=== PATIENT | male | born 1935 | race Caucasian/White ===

== ENCOUNTER 2018-12-20 14:34 | Emergency (ER) | payer MEDICARE ==
--- NOTE | 2018-12-20 14:40 | ERPHSYRPT ---
- History of Present Illness Time Seen by Provider: 12/20/18 14:40 Source: patient, family Exam Limitations: no limitations Physician History: 83 y/o white male on plavix and asa missed a step at home porch and scraped left vale. pt has been washing daily since he injured it 1 week ago. pt denies fever. here today because not improving much. maybe a little more red. no sig pain. Timing/Duration: week(s) (1) Severity: mild Location: extremities (left lower leg) Possible Causes: other (abrasions and healing sking tears) Associated Symptoms: change in skin texture Allergies/Adverse Reactions: No Known Drug Allergies Allergy (Verified 12/20/18 14:48) - Review of Systems Constitutional: No Symptoms Eyes: No Symptoms Ears, Nose, & Throat: No Symptoms Respiratory: No Symptoms Cardiac: No Symptoms Abdominal/Gastrointestinal: No Symptoms Genitourinary Symptoms: No Symptoms Musculoskeletal: No Symptoms Skin: Cellulitis, Other (abrasion and skin tears left vale) Neurological: No Symptoms Psychological: No Symptoms Endocrine: No Symptoms Hematologic/Lymphatic: No Symptoms Immunological/Allergic: No Symptoms All Other Systems: Reviewed and Negative - Past Medical History Neurological History: No Pertinent History ENT History: No Pertinent History Cardiac History: No Pertinent History Respiratory History: No Pertinent History Endocrine Medical History: No Pertinent History Musculoskeletal History: No Pertinent History GI Medical History: No Pertinent History History: No Pertinent History Psycho-Social History: No Pertinent History Male Reproductive Disorders: No Pertinent History - Past Surgical History Neuro Surgical History: No Pertinent History Cardiac: No Pertinent History Respiratory: No Pertinent History Gastrointestinal: No Pertinent History Genitourinary: No Pertinent History Musculoskeletal: No Pertinent History Male Surgical History: No Pertinent History - Nursing Vital Signs Nursing Vital Signs: Initial Vital Signs Temperature 97.7 F 12/20/18 14:40 Pulse Rate 69 12/20/18 14:40 Blood Pressure 155/78 12/20/18 14:40 O2 Sat by Pulse Oximetry 95 12/20/18 14:40 Pain Scale Pain Intensity 0 - Physical Exam General Appearance: no apparent distress, alert, anxiety Eye Exam: PERRL/EOMI, eyes nml inspection Ears, Nose, Throat Exam: normal ENT inspection, moist mucous membranes Neck Exam: normal inspection, non-tender, supple, full range of motion Respiratory Exam: normal breath sounds, lungs clear, airway intact, No chest tenderness, No respiratory distress Cardiovascular Exam: regular rate/rhythm, normal heart sounds, normal peripheral pulses Gastrointestinal/Abdomen Exam: No tenderness Rectal Exam: not done Back Exam: normal inspection, normal range of motion, No CVA tenderness, No vertebral tenderness Extremity Exam: other (abrasions and skin tears to left lower tibial margin. mild redness surrounding. no pus and no drainage. no odor and no sig pain) Neurologic Exam: alert, oriented x 3, cooperative, spd tech II-XII nml as tested, normal mood/affect, nml cerebellar function, nml station & gait Skin Exam: other (see above) Lymphatic Exam: No adenopathy SpO2 Interpretation: normal O2 Delivery: Room Air - Course Nursing assessment & vital signs reviewed: Yes Ordered Tests: Medication Summary Discontinued Medications Generic Name Dose Route Start Last Admin Trade Name Freq PRN Reason Stop Dose Admin Ceftriaxone Sodium 1,000 mg 12/20/18 14:59 Rocephin 1000 Mg Inj IM 12/20/18 15:00 STAT ONE - Progress Progress: unchanged Counseled pt/family regarding: diagnosis, need for follow-up - Departure Departure Disposition: Home Clinical Impression: Left leg cellulitis Condition: Stable Critical Care Time: No Referrals: PAULO ALVAREZ [Primary Care Provider] - Additional Instructions: wash site 2 times daily with soap and water. blot dry or use hairdryer to dry. apply antibiotic ointment of choice to areas after each washing. elevate left leg above heart if not ambulating. follow up with primary doctor for further management and reevaluation in 48 hours. return to ED if symptoms worsen. Prescriptions: Smz/Tmp Ds Tablet [Bactrim Ds Tablet] 1 udtab PO BID #14 tablet
[2018-12-20 14:49] VITALS: BP 155/78; PULSE 69; O2SAT 95
[2018-12-20] MEDS ORDERED: Rocephin 1000 MG INJ IM ONE (14:59)
[2018-12-20] MEDS ORDERED: Rocephin 1000 MG INJ ONE (15:07)
== END 2018-12-20 15:36 | disposition home or self-care (01) ==
LOC: ED 14:34
DX: L03.116 Cellulitis of left lower limb (principal)
CPT/HCPCS: 96372; 99283; J0696

== ENCOUNTER 2019-11-02 22:12 | Inpatient (IN) | payer MEDICARE ==
--- NOTE | 2019-11-02 22:34 | ERPHSYRPT ---
- History of Present Illness Time Seen by Provider: 11/02/19 22:33 Source: patient, family Exam Limitations: no limitations Physician History: This is an 83-year-old white male who has a history of COPD and has chronic shortness of breath. He wears 2 L of oxygen via nasal cannula at night. In the last 24 hours he is had a cough, low-grade fever and more short of breath than usual. His spouse has similar symptoms patient denies abdominal pain he denies chest pain. He has had no nausea vomiting or diarrhea. He is unaware of being exposed to anybody with COVID-19 positive test. Timing/Duration: yesterday Fever Severity: mild Associated Symptoms: cough, shortness of breath Allergies/Adverse Reactions: No Known Drug Allergies Allergy (Verified 12/20/18 14:48) Travel Risk - International Travel Have you traveled outside of the country in past 3 weeks: No - Coronavirus Screening Are you exhibiting any of the following symptoms?: Yes Symptoms: Fever, Cough: New Onset, Shortness of Breath Close contact with a COVID-19 positive Pt in past 14-21 Days: No - Review of Systems Constitutional: Fever Eyes: No Symptoms Ears, Nose, & Throat: No Symptoms Respiratory: Cough, Dyspnea Cardiac: No Symptoms Abdominal/Gastrointestinal: No Symptoms, No Abdominal Pain, No Nausea, No Vomiting, No Diarrhea Genitourinary Symptoms: No Symptoms Musculoskeletal: No Symptoms Skin: No Symptoms Neurological: No Symptoms Psychological: No Symptoms Endocrine: No Symptoms Hematologic/Lymphatic: No Symptoms Immunological/Allergic: No Symptoms All Other Systems: Reviewed and Negative - Past Medical History Pertinent Past Medical History: Yes Neurological History: No Pertinent History ENT History: No Pertinent History Cardiac History: No Pertinent History Respiratory History: No Pertinent History Endocrine Medical History: No Pertinent History Musculoskeletal History: No Pertinent History GI Medical History: No Pertinent History History: No Pertinent History Psycho-Social History: No Pertinent History Male Reproductive Disorders: No Pertinent History - Past Surgical History Neuro Surgical History: No Pertinent History Cardiac: No Pertinent History Respiratory: No Pertinent History Gastrointestinal: No Pertinent History Genitourinary: No Pertinent History Musculoskeletal: No Pertinent History Male Surgical History: No Pertinent History - Social History Smoking Status: Former smoker Exposure to second hand smoke: No Drug Use: none Patient Lives Alone: No - Nursing Vital Signs Nursing Vital Signs: Initial Vital Signs Temperature 98.7 F 11/02/19 22:13 Pulse Rate 102 H 11/02/19 22:13 Respiratory Rate 22 11/02/19 22:13 Blood Pressure 129/77 11/02/19 22:13 O2 Sat by Pulse Oximetry 92 L 11/02/19 22:13 Pain Scale Pain Intensity 0 - Course Nursing assessment & vital signs reviewed: Yes EKG Interpreted by Me: RATE, Sinus Rhythm, NORMAL AXIS, NORMAL INTERVALS, NORMAL QRS (Would just say the plan is looks like Far-Less), Other (No acute ischemic changes on this EKG. No comparison EKG available) Ordered Tests: Active Orders 24 hr Category Date Time Status EKG-ER Only STAT Care 11/02/19 22:56 Active IV Insertion STAT Care 11/02/19 22:56 Active Pulse Oximetry (ED) STAT Care 11/02/19 22:56 Active CHEST 1 VIEW (PORTABLE) Stat Exams 11/03/19 00:01 Ordered BLOOD CULTURE Stat Lab 11/02/19 22:47 Ordered CBC W DIFF Stat Lab 11/02/19 22:47 Completed CMP Stat Lab 11/02/19 22:47 Completed Ferritin Stat Lab 11/02/19 22:47 Completed LDH-LACTATE DEHYDROGENASE Stat Lab 11/02/19 22:47 Completed Lactic Acid Stat Lab 11/02/19 22:56 Completed [place] Screen Stat Lab 11/02/19 22:47 Completed UA W/RFX UR CULTURE Stat Lab 11/02/19 23:01 Completed Transfer Order Routine Transfer 11/03/19 Ordered Medication Summary Generic Name Dose Route Start Last Admin Trade Name Freq PRN Reason Stop Dose Admin Ceftriaxone Sodium/Dextrose 1 g in 50 mls @ 100 mls/hr 11/03/19 02:08 Rocephin 1 Gm-D5w 50 Ml Bag IV 11/03/19 02:37 STAT STA Discontinued Medications Generic Name Dose Route Start Last Admin Trade Name Freq PRN Reason Stop Dose Admin Sodium Chloride 1,000 mls @ 999 mls/hr 11/02/19 22:56 11/03/19 00:18 Sodium Chloride 0.9% 1000 Ml IV 11/02/19 23:56 Infused .Q1H1M STA Infusion Sodium Chloride Confirm 11/02/19 23:08 Sodium Chloride 0.9% 1000 Ml Administered 11/02/19 23:09 Dose 1,000 mls @ ud .ROUTE .[facility] Lab/Rad Data: Laboratory Result Diagrams 11/02/19 22:47 11/02/19 22:47 Laboratory Results 11/02/19 11/02/19 11/02/19 Range/Units 23:01 22:56 22:47 WBC (4.0-10.5) K/mm3 RBC (4.1-5.6) M/mm3 Hgb (12.5-18.0) gm/dl Hct (42-50) % MCV (78-100) fl MCH (26-32) pg MCHC (32-36) g/dl RDW (11.5-14.0) % Plt Count (150-450) K/mm3 MPV (7.5-11.0) fl Gran % (36.0-66.0) % Eos # (Auto) (0-0.5) Absolute Lymphs (auto) (1.0-4.6) Absolute Monos (auto) (0.0-1.3) Lymphocytes % (24.0-44.0) % Monocytes % (0.0-12.0) % Eosinophils % (0.00-5.0) % Basophils % (0.0-0.4) % Absolute Granulocytes (1.4-6.9) Basophils # (0-0.4) Sodium (137-145) mmol/L Potassium (3.5-5.1) mmol/L Chloride (98-107) mmol/L Carbon Dioxide (22-30) mmol/L Anion Gap (5-15) MEQ/L BUN (9-20) mg/dL Creatinine (0.66-1.25) mg/dL Estimated GFR ML/MIN Glucose (74-106) mg/dL Lactic Acid 1.0 (0.4-2.0) Calcium (8.4-10.2) mg/dL Ferritin 121 (17.9-464) ng/mL Total Bilirubin (0.2-1.3) mg/dL AST (17-59) U/L ALT (0-50) U/L Alkaline Phosphatase (38-126) U/L Lactate Dehydrogenase (120-246) U/L Serum Total Protein (6.3-8.2) g/dL Albumin (3.5-5.0) g/dL Urine Color YELLOW (YELLOW) Urine Appearance CLEAR (CLEAR) Urine pH 5.0 (5-6) Ur Specific [place] 1.020 (1.005-1.025) Urine Protein NEGATIVE (Negative) Urine Ketones NEGATIVE (NEGATIVE) Urine Blood NEGATIVE (0-5) Goyo/ul Urine Nitrite NEGATIVE (NEGATIVE) Urine Bilirubin NEGATIVE (NEGATIVE) Urine Urobilinogen 4 (0-1) mg/dL Ur Leukocyte Esterase TRACE (NEGATIVE) Urine WBC (Auto) 3-5 (0-5) /HPF Urine RBC (Auto) 0-2 (0-2) /HPF U Hyaline Cast (Auto) 11-25 (0-2) /LPF U Epithel Cells (Auto) NONE (FEW) /HPF Urine Bacteria (Auto) NONE (NEGATIVE) /HPF Urine Mucus (Auto) SLIGHT (NEGATIVE) /HPF Urine Culture Reflexed NO (NO) Urine Glucose NEGATIVE (NEGATIVE) mg/dL Monoscreen (Negative) Influenza Type A Ag (NEGATIVE) Influenza Type B Ag (NEGATIVE) RSV (PCR) (Negative) SARS-CoV-2 (PCR) (NEGATIVE) Group A Strep Antibody (NEGATIVE) 11/02/19 11/02/19 11/02/19 Range/Units 22:47 22:47 22:47 WBC (4.0-10.5) K/mm3 RBC (4.1-5.6) M/mm3 Hgb (12.5-18.0) gm/dl Hct (42-50) % MCV (78-100) fl MCH (26-32) pg MCHC (32-36) g/dl RDW (11.5-14.0) % Plt Count (150-450) K/mm3 MPV (7.5-11.0) fl Gran % (36.0-66.0) % Eos # (Auto) (0-0.5) Absolute Lymphs (auto) (1.0-4.6) Absolute Monos (auto) (0.0-1.3) Lymphocytes % (24.0-44.0) % Monocytes % (0.0-12.0) % Eosinophils % (0.00-5.0) % Basophils % (0.0-0.4) % Absolute Granulocytes (1.4-6.9) Basophils # (0-0.4) Sodium 137 (137-145) mmol/L Potassium 3.5 (3.5-5.1) mmol/L Chloride 101 (98-107) mmol/L Carbon Dioxide 26 (22-30) mmol/L Anion Gap 12.8 (5-15) MEQ/L BUN 16 (9-20) mg/dL Creatinine 1.08 (0.66-1.25) mg/dL Estimated GFR > 60.0 ML/MIN Glucose 97 (74-106) mg/dL Lactic Acid (0.4-2.0) Calcium 8.8 (8.4-10.2) mg/dL Ferritin (17.9-464) ng/mL Total Bilirubin 0.70 (0.2-1.3) mg/dL AST 40 (17-59) U/L ALT 38 (0-50) U/L Alkaline Phosphatase 113 (38-126) U/L Lactate Dehydrogenase 205 (120-246) U/L Serum Total Protein 6.6 (6.3-8.2) g/dL Albumin 4.1 (3.5-5.0) g/dL Urine Color (YELLOW) Urine Appearance (CLEAR) Urine pH (5-6) Ur Specific [place] (1.005-1.025) Urine Protein (Negative) Urine Ketones (NEGATIVE) Urine Blood (0-5) Goyo/ul Urine Nitrite (NEGATIVE) Urine Bilirubin (NEGATIVE) Urine Urobilinogen (0-1) mg/dL Ur Leukocyte Esterase (NEGATIVE) Urine WBC (Auto) (0-5) /HPF Urine RBC (Auto) (0-2) /HPF U Hyaline Cast (Auto) (0-2) /LPF U Epithel Cells (Auto) (FEW) /HPF Urine Bacteria (Auto) (NEGATIVE) /HPF Urine Mucus (Auto) (NEGATIVE) /HPF Urine Culture Reflexed (NO) Urine Glucose (NEGATIVE) mg/dL Monoscreen NEGATIVE (Negative) Influenza Type A Ag (NEGATIVE) Influenza Type B Ag (NEGATIVE) RSV (PCR) (Negative) SARS-CoV-2 (PCR) (NEGATIVE) Group A Strep Antibody (NEGATIVE) 11/02/19 11/02/19 Range/Units 22:47 00:00 WBC 2.7 L (4.0-10.5) K/mm3 RBC 4.43 (4.1-5.6) M/mm3 Hgb 13.7 (12.5-18.0) gm/dl Hct 42.8 (42-50) % MCV 96.6 (78-100) fl MCH 30.9 (26-32) pg MCHC 32.0 (32-36) g/dl RDW 13.2 (11.5-14.0) % Plt Count 85 L (150-450) K/mm3 MPV 13.0 H (7.5-11.0) fl Gran % 58.8 (36.0-66.0) % Eos # (Auto) 0.02 (0-0.5) Absolute Lymphs (auto) 0.64 L (1.0-4.6) Absolute Monos (auto) 0.43 (0.0-1.3) Lymphocytes % 24.0 (24.0-44.0) % Monocytes % 16.1 H (0.0-12.0) % Eosinophils % 0.7 (0.00-5.0) % Basophils % 0.4 (0.0-0.4) % Absolute Granulocytes 1.57 (1.4-6.9) Basophils # 0.01 (0-0.4) Sodium (137-145) mmol/L Potassium (3.5-5.1) mmol/L Chloride (98-107) mmol/L Carbon Dioxide (22-30) mmol/L Anion Gap (5-15) MEQ/L BUN (9-20) mg/dL Creatinine (0.66-1.25) mg/dL Estimated GFR ML/MIN Glucose (74-106) mg/dL Lactic Acid (0.4-2.0) Calcium (8.4-10.2) mg/dL Ferritin (17.9-464) ng/mL Total Bilirubin (0.2-1.3) mg/dL AST (17-59) U/L ALT (0-50) U/L Alkaline Phosphatase (38-126) U/L Lactate Dehydrogenase (120-246) U/L Serum Total Protein (6.3-8.2) g/dL Albumin (3.5-5.0) g/dL Urine Color (YELLOW) Urine Appearance (CLEAR) Urine pH (5-6) Ur Specific [place] (1.005-1.025) Urine Protein (Negative) Urine Ketones (NEGATIVE) Urine Blood (0-5) Goyo/ul Urine Nitrite (NEGATIVE) Urine Bilirubin (NEGATIVE) Urine Urobilinogen (0-1) mg/dL Ur Leukocyte Esterase (NEGATIVE) Urine WBC (Auto) (0-5) /HPF Urine RBC (Auto) (0-2) /HPF U Hyaline Cast (Auto) (0-2) /LPF U Epithel Cells (Auto) (FEW) /HPF Urine Bacteria (Auto) (NEGATIVE) /HPF Urine Mucus (Auto) (NEGATIVE) /HPF Urine Culture Reflexed (NO) Urine Glucose (NEGATIVE) mg/dL Monoscreen (Negative) Influenza Type A Ag NEGATIVE (NEGATIVE) Influenza Type B Ag NEGATIVE (NEGATIVE) RSV (PCR) NEGATIVE (Negative) SARS-CoV-2 (PCR) POSITIVE A (NEGATIVE) Group A Strep Antibody NOT DETECTED (NEGATIVE) - Progress Progress: improved, re-examined Progress Note: 11/03/19 02:10 Chest x-ray shows a right lower lobe infiltrate. Medical decision making: I spoke with Dr. Stevens, who is the patient's primary care physician as well as the COVID-19 unit physician coupon collection clerk. I reviewed the patient history, condition, laboratory results, EKG results and chest x-ray results with him. We will admit the patient into the COVID unit. We will provide the patient with Rocephin intravenous antibiotics. Dr. Stevens wants to wait on the steroid for now. We will repeat laboratory data. We will have respiratory therapy evaluate this patient and his oxygen status Counseled pt/family regarding: lab results, diagnosis, need for follow-up, rad results - Departure Departure Disposition: In-patient Admission Clinical Impression: Lab test positive for detection of COVID-19 virus, Right lower lobe pneumonia Condition: Fair Critical Care Time: Yes Critical Care Time(excluding separately billable procedures): Critical 30-74 mins Referrals: JAMES STEVENS MD [Primary Care Provider] -
[2019-11-02] MEDS ORDERED: Sodium Chloride 0.9% 1000 ML 1,000 ML IV STA (22:56)
[2019-11-02] MEDS ORDERED: Sodium Chloride 0.9% 1000 ML 1,000 ML ONE (23:08)
[2019-11-02 23:19] LABS: Absolute Neutrophil Ct (ANC) 1.57 (1.4-6.9); BASOPHIL % 0.4 % (0.0-0.4); Basophil (Absolute #) 0.01 (0-0.4); Eosinophil % 0.7 % (0.00-5.0); Eosinophil (Absolute #) 0.02 (0-0.5); Hematocrit 42.8 % (42-50); Hemoglobin 13.7 gm/dl (12.5-18.0); Lymphocyte (Absolute #) 0.64 (1.0-4.6); Mean Cell Volume 96.6 fl (78-100); Mean Corpuscular Hemoglobin 30.9 pg (26-32); Monocyte (Absolute #) 0.43 (0.0-1.3); Monocytes % 16.1 % (0.0-12.0); Neutrophil % 58.8 % (36.0-66.0); Platelet Count 85 K/mm3 (150-450); Red Blood Count 4.43 M/mm3 (4.1-5.6); Red Cell Distribution Width 13.2 % (11.5-14.0); White Blood Count 2.7 K/mm3 (4.0-10.5)
[2019-11-02 23:27] LABS: Appearance CLEAR (CLEAR); Bilirubin NEGATIVE (NEGATIVE); Blood NEGATIVE Ery/ul (0-5); Glucose NEGATIVE (NEGATIVE); Ketones NEGATIVE (NEGATIVE); Leukocyte Esterase TRACE (NEGATIVE); Mucus SLIGHT /HPF (NEGATIVE); Nitrite NEGATIVE (NEGATIVE); Protein,Urine Dip NEGATIVE (Negative); RBC 0-2 /HPF (0-2); Urobilinogen 4 mg/dL (0-1)
[2019-11-02 23:35] LABS: ALBUMIN 4.1 g/dL (3.5-5.0); ALKALINE PHOSPHATASE 113 U/L (38-126); ANION GAP 12.8 MEQ/L (5-15); BLOOD UREA NITROGEN 16 mg/dL (9-20); CHLORIDE 101 mmol/L (98-107); Calcium 8.8 mg/dL (8.4-10.2); Carbon Dioxide 26 mmol/L (22-30); Creatinine 1 1.08 mg/dL (0.66-1.25); Glucose 97 mg/dL (74-106); Potassium 3.5 mmol/L (3.5-5.1); SGOT/AST 40 U/L (17-59); SGPT/ALT 38 U/L (0-50); SODIUM 137 mmol/L (137-145); Total Protein 6.6 g/dL (6.3-8.2)
[2019-11-03 01:03] LABS: INFLUENZA A NEGATIVE (NEGATIVE); INFLUENZA B NEGATIVE (NEGATIVE); RESPIRATORY SYNCTIAL VIRUS NEGATIVE (Negative)
[2019-11-03] MEDS ORDERED: ROCEPHIN 1 Gm-D5w 50 ml Bag** 1 G/50 ML IVPB IV STA (02:08)
[2019-11-03] MEDS ORDERED: ROCEPHIN 1 Gm-D5w 50 ml Bag** 1 G/50 ML IVPB IV ONE (02:27)
[2019-11-03 04:24] LABS: Slide Review 1 YES
[2019-11-03] MEDS ORDERED: Zofran 4 MG/2 ML VIAL IV PRN (06:39)
[2019-11-03] MEDS: Sodium Chloride 0.9% 1000 ML 1,000 ML IV SCH (06:46)
--- NOTE | 2019-11-03 09:29 | XRAY ---
Indication: Fever and cough. Covid 19 positive. Comparison: None Portable chest demonstrates mild right infrahilar infiltrate versus atelectasis, small focal eventration right hemidiaphragm, and scattered tiny calcified granulomas. Remaining heart and left lung unremarkable. Bony thorax demonstrates osteopenia, degenerative changes, old left rib fractures, and marked left glenohumeral deformity presumed old injury.
--- NOTE | 2019-11-03 11:58 | PCM.HP ---
History of Present Illness - Chief Complaint Chief Complaint: covid 19 positive, c/o shortness of breath for 1-2 days History of Present Illness: is a 83 year old male. who has a history of COPD and has chronic shortness of breath. He wears 2 L of oxygen via nasal cannula at night. In the last 24 hours he is had a cough, low-grade fever and more short of breath than usual. His spouse has similar symptoms patient denies abdominal pain he denies chest pain. He has had no nausea vomiting or diarrhea. He is unaware of being exposed to anybody with COVID-19 positive test. Timing/Duration: yesterday Fever Severity: mild Associated Symptoms: cough, shortness of breath - Review of Systems Constitutional: Fever, Chills Eyes: No Symptoms Ears, Nose, & Throat: No Symptoms Respiratory: Cough, Orthopnea, Short Of Breath, Wheezing Cardiac: No Chest Pain, No Edema, No Syncope Abdominal/Gastrointestinal: No Abdominal Pain, No Nausea, No Vomiting, No Diarrhea Genitourinary Symptoms: No Dysuria Musculoskeletal: No Back Pain, No Neck Pain Skin: No Rash Neurological: No Dizziness, No Focal Weakness, No Sensory Changes Psychological: No Symptoms Endocrine: No Symptoms Hematologic/Lymphatic: No Symptoms Immunological/Allergic: No Symptoms Medications & Allergies Home Medications: Home Medication List Albuterol Sulfate 2.5 mg IH Q6H 11/03/19 [History Confirmed 11/03/19] Albuterol Sulfate [Ventolin Hfa] 2 puffs IH TID 11/03/19 [History Confirmed 11/03/19] Alendronate Sodium 70 mg [Fosamax 70 MG] 70 mg PO WEEKLY 11/03/19 [History Confirmed 11/03/19] Aspirin EC 81 mg [Ecotrin 81 mg] 81 mg PO DAILY 11/03/19 [History Confirmed 11/03/19] Atenolol 50 mg [Tenormin 50 mg] 50 mg PO DAILY 11/03/19 [History Confirmed 11/03/19] Brimonidine Tartrate [Alphagan P 0.15%] 1 drop OP DAILY 11/03/19 [History Confirmed 11/03/19] Calcium Carbonate/Vitamin D3 [Calcium 500Mg-Vit D3 15Mcg Tab] 1 each PO DAILY 11/03/19 [History Confirmed 11/03/19] Diphenhydramine HCl 25 mg [Benadryl 25 mg Capsule] 25 mg PO DAILY 11/03/19 [History Confirmed 11/03/19] Dorzolamide HCl/Pf [Dorzolamide 2% Eye Drop] 1 drop OP BID 11/03/19 [History Confirmed 11/03/19] Fluticasone/Umeclidin/Vilanter [Trelegy Ellipta 100-62.5-25] 1 each IH DAILY 11/03/19 [History Confirmed 11/03/19] Guaifenesin 600 mg ER [Mucinex 600MG ER Tabs] 600 mg PO BID 11/03/19 [History Confirmed 11/03/19] Simvastatin 20Mg [Zocor 20Mg] 40 mg PO DAILY 11/03/19 [History Confirmed 11/03/19] Allergies/Adverse Reactions: Allergies Allergy/AdvReac Type Severity Reaction Status Date / Time No Known Drug Allergies Allergy Verified 11/03/19 03:35 - Past Medical History Past Medical History: Yes Neurological History: No Pertinent History ENT History: No Pertinent History Cardiac History: Coronary Artery Disease Respiratory History: COPD Endocrine Medical History: No Pertinent History Musculoskelatal History: No Pertinent History GI Medical History: No Pertinent History History: No Pertinent History Pyscho-Social History: No Pertinent History Male Reproductive Disorders: No Pertinent History Comment: pt poor historian. states hyperkalemia - Past Surgical History Past Surgical History: Yes Neuro Surgical History: No Pertinent History Cardiac History: Cardiac Stent Respiratory Surgery: No Pertinent History GI Surgical History: No Pertinent History Genitourinary Surgical Hx: No Pertinent History Musculskeletal Surgical Hx: No Pertinent History Male Surgical History: No Pertinent History - Social History Smoking Status: Former smoker How long have you smoked: 50 yr Exposure to second hand smoke: No Alcohol: None Drug Use: none - Physical Exam Vital Signs: Vital Signs - 24 hr Temp Pulse Resp BP Pulse Ox 11/03/19 11:21 98.7 F 86 12 135/71 94 L 11/03/19 11:00 16 11/03/19 10:00 21 11/03/19 09:53 94 H 22 94 L 11/03/19 09:00 18 11/03/19 08:14 97.0 F 83 14 162/81 95 11/03/19 08:00 14 11/03/19 07:28 97.0 F 83 14 162/81 95 11/03/19 06:38 78 18 92 L 11/03/19 05:00 67 20 173/84 99 11/03/19 04:00 62 22 156/86 97 11/03/19 03:00 67 20 162/81 96 11/03/19 02:00 76 22 149/77 95 11/03/19 00:50 82 19 144/74 92 L 11/02/19 23:01 92 L 11/02/19 22:13 98.7 F 102 H 22 129/77 92 L Oxygen-Last 24 hours Oxygen Flowrate (L/min)-RT 4 General Appearance: no apparent distress, alert Neurologic Exam: alert, oriented x 3, cooperative, normal mood/affect, nml cerebellar function, nml station & gait, sensation nml, No motor deficits Eye Exam: PERRL/EOMI, eyes nml inspection Ears, Nose, Throat Exam: normal ENT inspection, TMs normal, pharynx normal, moist mucous membranes Neck Exam: normal inspection, non-tender, supple, full range of motion Respiratory Exam: diminished breath sounds, crackles/rales, rhonchi, wheezing, No respiratory distress Cardiovascular Exam: regular rate/rhythm, normal heart sounds, normal peripheral pulses Gastrointestinal/Abdomen Exam: soft, normal bowel sounds, No tenderness, No mass Back Exam: normal inspection, normal range of motion, No CVA tenderness, No vertebral tenderness Extremity Exam: normal inspection, normal range of motion, pelvis stable Skin Exam: normal color, warm, dry, No rash Lymphatic Exam: No adenopathy Results - Labs Lab/Micro Results: Lab Results-Last 24 Hours 11/02/19 11/02/19 11/02/19 Range/Units 00:00 22:47 22:47 WBC 2.7 L (4.0-10.5) K/mm3 RBC 4.43 (4.1-5.6) M/mm3 Hgb 13.7 (12.5-18.0) gm/dl Hct 42.8 (42-50) % MCV 96.6 (78-100) fl MCH 30.9 (26-32) pg MCHC 32.0 (32-36) g/dl RDW 13.2 (11.5-14.0) % Plt Count 85 L (150-450) K/mm3 MPV 13.0 H (7.5-11.0) fl Gran % 58.8 (36.0-66.0) % Eos # (Auto) 0.02 (0-0.5) Absolute Lymphs (auto) 0.64 L (1.0-4.6) Absolute Monos (auto) 0.43 (0.0-1.3) Lymphocytes % 24.0 (24.0-44.0) % Monocytes % 16.1 H (0.0-12.0) % Eosinophils % 0.7 (0.00-5.0) % Basophils % 0.4 (0.0-0.4) % Absolute Granulocytes 1.57 (1.4-6.9) Basophils # 0.01 (0-0.4) Sodium 137 (137-145) mmol/L Potassium 3.5 (3.5-5.1) mmol/L Chloride 101 (98-107) mmol/L Carbon Dioxide 26 (22-30) mmol/L Anion Gap 12.8 (5-15) MEQ/L BUN 16 (9-20) mg/dL Creatinine 1.08 (0.66-1.25) mg/dL Estimated GFR > 60.0 ML/MIN Glucose 97 (74-106) mg/dL Lactic Acid (0.4-2.0) Calcium 8.8 (8.4-10.2) mg/dL Ferritin (17.9-464) ng/mL Total Bilirubin 0.70 (0.2-1.3) mg/dL AST 40 (17-59) U/L ALT 38 (0-50) U/L Alkaline Phosphatase 113 (38-126) U/L Lactate Dehydrogenase (120-246) U/L Serum Total Protein 6.6 (6.3-8.2) g/dL Albumin 4.1 (3.5-5.0) g/dL Urine Color (YELLOW) Urine Appearance (CLEAR) Urine pH (5-6) Ur Specific [place] (1.005-1.025) Urine Protein (Negative) Urine Ketones (NEGATIVE) Urine Blood (0-5) Goyo/ul Urine Nitrite (NEGATIVE) Urine Bilirubin (NEGATIVE) Urine Urobilinogen (0-1) mg/dL Ur Leukocyte Esterase (NEGATIVE) Urine WBC (Auto) (0-5) /HPF Urine RBC (Auto) (0-2) /HPF U Hyaline Cast (Auto) (0-2) /LPF U Epithel Cells (Auto) (FEW) /HPF Urine Bacteria (Auto) (NEGATIVE) /HPF Urine Mucus (Auto) (NEGATIVE) /HPF Urine Culture Reflexed (NO) Urine Glucose (NEGATIVE) mg/dL Monoscreen (Negative) Influenza Type A Ag NEGATIVE (NEGATIVE) Influenza Type B Ag NEGATIVE (NEGATIVE) RSV (PCR) NEGATIVE (Negative) SARS-CoV-2 (PCR) POSITIVE A (NEGATIVE) Group A Strep Antibody NOT DETECTED (NEGATIVE) Slides for Path Review YES 11/02/19 11/02/19 11/02/19 Range/Units 22:47 22:47 22:47 WBC (4.0-10.5) K/mm3 RBC (4.1-5.6) M/mm3 Hgb (12.5-18.0) gm/dl Hct (42-50) % MCV (78-100) fl MCH (26-32) pg MCHC (32-36) g/dl RDW (11.5-14.0) % Plt Count (150-450) K/mm3 MPV (7.5-11.0) fl Gran % (36.0-66.0) % Eos # (Auto) (0-0.5) Absolute Lymphs (auto) (1.0-4.6) Absolute Monos (auto) (0.0-1.3) Lymphocytes % (24.0-44.0) % Monocytes % (0.0-12.0) % Eosinophils % (0.00-5.0) % Basophils % (0.0-0.4) % Absolute Granulocytes (1.4-6.9) Basophils # (0-0.4) Sodium (137-145) mmol/L Potassium (3.5-5.1) mmol/L Chloride (98-107) mmol/L Carbon Dioxide (22-30) mmol/L Anion Gap (5-15) MEQ/L BUN (9-20) mg/dL Creatinine (0.66-1.25) mg/dL Estimated GFR ML/MIN Glucose (74-106) mg/dL Lactic Acid (0.4-2.0) Calcium (8.4-10.2) mg/dL Ferritin 121 (17.9-464) ng/mL Total Bilirubin (0.2-1.3) mg/dL AST (17-59) U/L ALT (0-50) U/L Alkaline Phosphatase (38-126) U/L Lactate Dehydrogenase 205 (120-246) U/L Serum Total Protein (6.3-8.2) g/dL Albumin (3.5-5.0) g/dL Urine Color (YELLOW) Urine Appearance (CLEAR) Urine pH (5-6) Ur Specific [place] (1.005-1.025) Urine Protein (Negative) Urine Ketones (NEGATIVE) Urine Blood (0-5) Goyo/ul Urine Nitrite (NEGATIVE) Urine Bilirubin (NEGATIVE) Urine Urobilinogen (0-1) mg/dL Ur Leukocyte Esterase (NEGATIVE) Urine WBC (Auto) (0-5) /HPF Urine RBC (Auto) (0-2) /HPF U Hyaline Cast (Auto) (0-2) /LPF U Epithel Cells (Auto) (FEW) /HPF Urine Bacteria (Auto) (NEGATIVE) /HPF Urine Mucus (Auto) (NEGATIVE) /HPF Urine Culture Reflexed (NO) Urine Glucose (NEGATIVE) mg/dL Monoscreen NEGATIVE (Negative) Influenza Type A Ag (NEGATIVE) Influenza Type B Ag (NEGATIVE) RSV (PCR) (Negative) SARS-CoV-2 (PCR) (NEGATIVE) Group A Strep Antibody (NEGATIVE) Slides for Path Review 11/02/19 11/02/19 Range/Units 22:56 23:01 WBC (4.0-10.5) K/mm3 RBC (4.1-5.6) M/mm3 Hgb (12.5-18.0) gm/dl Hct (42-50) % MCV (78-100) fl MCH (26-32) pg MCHC (32-36) g/dl RDW (11.5-14.0) % Plt Count (150-450) K/mm3 MPV (7.5-11.0) fl Gran % (36.0-66.0) % Eos # (Auto) (0-0.5) Absolute Lymphs (auto) (1.0-4.6) Absolute Monos (auto) (0.0-1.3) Lymphocytes % (24.0-44.0) % Monocytes % (0.0-12.0) % Eosinophils % (0.00-5.0) % Basophils % (0.0-0.4) % Absolute Granulocytes (1.4-6.9) Basophils # (0-0.4) Sodium (137-145) mmol/L Potassium (3.5-5.1) mmol/L Chloride (98-107) mmol/L Carbon Dioxide (22-30) mmol/L Anion Gap (5-15) MEQ/L BUN (9-20) mg/dL Creatinine (0.66-1.25) mg/dL Estimated GFR ML/MIN Glucose (74-106) mg/dL Lactic Acid 1.0 (0.4-2.0) Calcium (8.4-10.2) mg/dL Ferritin (17.9-464) ng/mL Total Bilirubin (0.2-1.3) mg/dL AST (17-59) U/L ALT (0-50) U/L Alkaline Phosphatase (38-126) U/L Lactate Dehydrogenase (120-246) U/L Serum Total Protein (6.3-8.2) g/dL Albumin (3.5-5.0) g/dL Urine Color YELLOW (YELLOW) Urine Appearance CLEAR (CLEAR) Urine pH 5.0 (5-6) Ur Specific [place] 1.020 (1.005-1.025) Urine Protein NEGATIVE (Negative) Urine Ketones NEGATIVE (NEGATIVE) Urine Blood NEGATIVE (0-5) Goyo/ul Urine Nitrite NEGATIVE (NEGATIVE) Urine Bilirubin NEGATIVE (NEGATIVE) Urine Urobilinogen 4 (0-1) mg/dL Ur Leukocyte Esterase TRACE (NEGATIVE) Urine WBC (Auto) 3-5 (0-5) /HPF Urine RBC (Auto) 0-2 (0-2) /HPF U Hyaline Cast (Auto) 11-25 (0-2) /LPF U Epithel Cells (Auto) NONE (FEW) /HPF Urine Bacteria (Auto) NONE (NEGATIVE) /HPF Urine Mucus (Auto) SLIGHT (NEGATIVE) /HPF Urine Culture Reflexed NO (NO) Urine Glucose NEGATIVE (NEGATIVE) mg/dL Monoscreen (Negative) Influenza Type A Ag (NEGATIVE) Influenza Type B Ag (NEGATIVE) RSV (PCR) (Negative) SARS-CoV-2 (PCR) (NEGATIVE) Group A Strep Antibody (NEGATIVE) Slides for Path Review - Radiology Impressions Radiology Exams & Impressions: Radiology Procedures Category Date Time Status CHEST 1 VIEW (PORTABLE) Stat Exams 11/03/19 00:01 Completed - Other Procedures and Tests Respiratory Therapy 11/03/19 06:39 Oxygen Nasal Cannula 2 lpm 11/03/19 10:28 Respiratory Therapy Assessment DAILY 11/03/19 10:29 Respiratory MDI BID Assessment/Plan (1) Lab test positive for detection of COVID-19 virus Current Visit: Yes Status: Acute Assessment & Plan: Last Vital Signs Temp 98.7 F 11/03/19 11:21 Pulse 86 11/03/19 11:21 Resp 12 11/03/19 11:21 BP 135/71 11/03/19 11:21 Pulse Ox 94 L 11/03/19 11:21 Allergies No Known Drug Allergies Allergy (Verified 11/03/19 03:35) Active Medications Acetaminophen (Tylenol 325 Mg) 650 mg PO Q4H PRN PRN PRN Reason: PAIN, FEVER, HEADACHE Stop: 12/03/19 06:38 Albuterol Sulfate (Ventolin Hfa Mdi) 4 gm IH TIDRT [facility] Stop: 12/03/19 12:59 Sodium Chloride (Sodium Chloride 0.9% 1000 Ml) 1,000 mls @ 50 mls/hr IV .Q20H [facility] Stop: 12/03/19 06:38 Last Admin: 11/03/19 06:46 Dose: 50 mls/hr Documented by: Ceftriaxone Sodium/Dextrose (Rocephin 1 Gm-D5w 50 Ml Bag) 1 g in 50 mls @ 100 mls/hr IV QPM [facility] Stop: 12/03/19 21:59 Ondansetron HCl (Zofran 4 Mg/2 Ml Vial) 4 mg IV Q6H PRN PRN PRN Reason: NAUSEA/VOMITING Stop: 12/03/19 06:38 Fluticasone/Salmeterol (Advair 250-50 Diskus 14 Dose) 1 each IH BIDRT [facility] Stop: 12/03/19 10:59 Intake & Output 11/02/19 11/03/19 11:59 11:59 Intake Total 360 Output Total 250 Balance 110 Weight 89.3 kg Orders 11/03/19 10:28 Pulse Oximetry .continuos Respiratory Therapy Assessment DAILY 11/03/19 10:29 Respiratory MDI BID 11/03/19 11:00 Fluticasone/Salmeterol Disc [Advair 250-50 Diskus 14 Dose] 1 each IH BIDRT 11/03/19 13:00 Albuterol 8 gm Mdi Hfa [Ventolin Hfa MDI] 4 gm IH TIDRT Lab Tests 11/02/19 11/02/19 11/02/19 00:00 22:47 22:47 WBC 2.7 L RBC 4.43 Hgb 13.7 Hct 42.8 MCV 96.6 MCH 30.9 MCHC 32.0 RDW 13.2 Plt Count 85 L MPV 13.0 H Gran % 58.8 Eos # (Auto) 0.02 Absolute Lymphs (auto) 0.64 L Absolute Monos (auto) 0.43 Lymphocytes % 24.0 Monocytes % 16.1 H Eosinophils % 0.7 Basophils % 0.4 Absolute Granulocytes 1.57 Basophils # 0.01 Sodium 137 Potassium 3.5 Chloride 101 Carbon Dioxide 26 Anion Gap 12.8 BUN 16 Creatinine 1.08 Estimated GFR > 60.0 Glucose 97 Lactic Acid Calcium 8.8 Ferritin Total Bilirubin 0.70 AST 40 ALT 38 Alkaline Phosphatase 113 Lactate Dehydrogenase Serum Total Protein 6.6 Albumin 4.1 Urine Color Urine Appearance Urine pH Ur Specific [place] Urine Protein Urine Ketones Urine Blood Urine Nitrite Urine Bilirubin Urine Urobilinogen Ur Leukocyte Esterase Urine WBC (Auto) Urine RBC (Auto) U Hyaline Cast (Auto) U Epithel Cells (Auto) Urine Bacteria (Auto) Urine Mucus (Auto) Urine Culture Reflexed Urine Glucose Monoscreen Influenza Type A Ag NEGATIVE Influenza Type B Ag NEGATIVE RSV (PCR) NEGATIVE SARS-CoV-2 (PCR) POSITIVE A Group A Strep Antibody NOT DETECTED Slides for Path Review YES 11/02/19 11/02/19 11/02/19 22:47 22:47 22:47 WBC RBC Hgb Hct MCV MCH MCHC RDW Plt Count MPV Gran % Eos # (Auto) Absolute Lymphs (auto) Absolute Monos (auto) Lymphocytes % Monocytes % Eosinophils % Basophils % Absolute Granulocytes Basophils # Sodium Potassium Chloride Carbon Dioxide Anion Gap BUN Creatinine Estimated GFR Glucose Lactic Acid Calcium Ferritin 121 Total Bilirubin AST ALT Alkaline Phosphatase Lactate Dehydrogenase 205 Serum Total Protein Albumin Urine Color Urine Appearance Urine pH Ur Specific [place] Urine Protein Urine Ketones Urine Blood Urine Nitrite Urine Bilirubin Urine Urobilinogen Ur Leukocyte Esterase Urine WBC (Auto) Urine RBC (Auto) U Hyaline Cast (Auto) U Epithel Cells (Auto) Urine Bacteria (Auto) Urine Mucus (Auto) Urine Culture Reflexed Urine Glucose Monoscreen NEGATIVE Influenza Type A Ag Influenza Type B Ag RSV (PCR) SARS-CoV-2 (PCR) Group A Strep Antibody Slides for Path Review 11/02/19 11/02/19 22:56 23:01 WBC RBC Hgb Hct MCV MCH MCHC RDW Plt Count MPV Gran % Eos # (Auto) Absolute Lymphs (auto) Absolute Monos (auto) Lymphocytes % Monocytes % Eosinophils % Basophils % Absolute Granulocytes Basophils # Sodium Potassium Chloride Carbon Dioxide Anion Gap BUN Creatinine Estimated GFR Glucose Lactic Acid 1.0 Calcium Ferritin Total Bilirubin AST ALT Alkaline Phosphatase Lactate Dehydrogenase Serum Total Protein Albumin Urine Color YELLOW Urine Appearance CLEAR Urine pH 5.0 Ur Specific [place] 1.020 Urine Protein NEGATIVE Urine Ketones NEGATIVE Urine Blood NEGATIVE Urine Nitrite NEGATIVE Urine Bilirubin NEGATIVE Urine Urobilinogen 4 Ur Leukocyte Esterase TRACE Urine WBC (Auto) 3-5 Urine RBC (Auto) 0-2 U Hyaline Cast (Auto) 11-25 U Epithel Cells (Auto) NONE Urine Bacteria (Auto) NONE Urine Mucus (Auto) SLIGHT Urine Culture Reflexed NO Urine Glucose NEGATIVE Monoscreen Influenza Type A Ag Influenza Type B Ag RSV (PCR) SARS-CoV-2 (PCR) Group A Strep Antibody Slides for Path Review Code(s): U07.1 - COVID-19 (2) Right lower lobe pneumonia Current Visit: Yes Status: Acute Code(s): J18.9 - PNEUMONIA, UNSPECIFIED ORGANISM
[2019-11-03] MEDS ORDERED: MEDICATION INTERVENTION MC SCH (13:15)
[2019-11-03] MEDS ORDERED: PROVENTIL 2.5 MG/3 ML NEB IH SCH (13:30)
[2019-11-03] MEDS: ZOCOR 20MG PO SCH (14:07)
[2019-11-03] MEDS: Mucinex 600MG ER Tabs PO SCH ×2 (14:07→22:00)
[2019-11-03] MEDS: ECOTRIN 81 MG PO SCH (14:07)
[2019-11-03] MEDS: BENADRYL 25 MG CAPSULE PO SCH (14:07)
[2019-11-03] MEDS: TENORMIN 50 MG PO SCH (14:08)
[2019-11-03] MEDS: Calcium 500MG W/Vit D Tablet PO SCH (14:19)
[2019-11-03] MEDS: Alphagan P 0.15% OP SCH (14:19)
[2019-11-03] MEDS: Ventolin Hfa MDI IH SCH ×2 (14:27→20:15)
[2019-11-03] MEDS: TYLENOL 325 MG PO PRN (18:30)
[2019-11-03] MEDS: ADVAIR 250-50 DISKUS 14 DOSE IH SCH (20:15)
[2019-11-03] MEDS ORDERED: ROCEPHIN 1 Gm-D5w 50 ml Bag** 1 G/50 ML IVPB IV SCH (22:00)
[2019-11-03] MEDS ORDERED: NON-FORMULARY ITEM (Dorzolamide Hcl/Pf [Dorzolamide 2% Eye Drop] 1 DROP) OP SCH (22:00)
[2019-11-04] MEDS: Sodium Chloride 0.9% 1000 ML 1,000 ML IV SCH (02:25)
[2019-11-04] MEDS: TYLENOL 325 MG PO PRN ×2 (02:25→22:22)
[2019-11-04 06:51] LABS: Absolute Neutrophil Ct (ANC) 0.86 (1.4-6.9); BASOPHIL % 0.6 % (0.0-0.4); Basophil (Absolute #) 0.01 (0-0.4); Eosinophil % 3.3 % (0.00-5.0); Eosinophil (Absolute #) 0.06 (0-0.5); Hematocrit 42.2 % (42-50); Hemoglobin 13.1 gm/dl (12.5-18.0); Lymphocytes % 38.7 % (24.0-44.0); Mean Cell Volume 99.5 fl (78-100); Mean Corpuscular Hemoglobin 30.9 pg (26-32); Mean Platelet Volume 12.6 fl (7.5-11.0); Monocyte (Absolute #) 0.18 (0.0-1.3); Monocytes % 9.9 % (0.0-12.0); Neutrophil % 47.5 % (36.0-66.0); Platelet Count 63 K/mm3 (150-450); Red Blood Count 4.24 M/mm3 (4.1-5.6); Red Cell Distribution Width 13.5 % (11.5-14.0)
[2019-11-04 07:18] LABS: ALBUMIN 3.5 g/dL (3.5-5.0); ALKALINE PHOSPHATASE 86 U/L (38-126); ANION GAP 7.7 MEQ/L (5-15); BLOOD UREA NITROGEN 10 mg/dL (9-20); CHLORIDE 104 mmol/L (98-107); Calcium 8.4 mg/dL (8.4-10.2); Carbon Dioxide 31 mmol/L (22-30); Creatinine 1 0.83 mg/dL (0.66-1.25); Glucose 88 mg/dL (74-106); SGOT/AST 32 U/L (17-59); SGPT/ALT 29 U/L (0-50); SODIUM 138 mmol/L (137-145)
[2019-11-04] MEDS: Ventolin Hfa MDI IH SCH ×3 (07:33→19:15)
[2019-11-04] MEDS: ADVAIR 250-50 DISKUS 14 DOSE IH SCH ×2 (07:34→19:15)
[2019-11-04 07:40] LABS: White Blood Count 1.8 K/mm3 (4.0-10.5)
--- NOTE | 2019-11-04 09:41 | PCM.NOTE ---
Date and Time: 11/04/19939 Subjective Assessment: doing better - Review of Systems Constitutional: No Fever, No Chills Eyes: No Symptoms Ears, Nose, & Throat: No Symptoms Respiratory: No Cough, No Short Of Breath Cardiac: No Chest Pain, No Edema, No Syncope Abdominal/Gastrointestinal: No Abdominal Pain, No Nausea, No Vomiting, No Diarrhea Genitourinary Symptoms: No Dysuria Musculoskeletal: No Back Pain, No Neck Pain Skin: No Rash Neurological: No Dizziness, No Focal Weakness, No Sensory Changes Psychological: No Symptoms Endocrine: No Symptoms Hematologic/Lymphatic: No Symptoms Immunological/Allergic: No Symptoms Objective Exam General Appearance: no apparent distress, alert Neurologic Exam: alert, oriented x 3, cooperative, normal mood/affect, nml cerebellar function, sensation nml, No motor deficits Skin Exam: normal color, warm, dry Eye Exam: PERRL, EOMI, eyes nml inspection Ears, Nose, Throat Exam: normal ENT inspection, pharynx normal, moist mucous membranes Neck Exam: normal inspection, non-tender, supple, full range of motion Respiratory Exam: normal breath sounds, lungs clear, No respiratory distress Cardiovascular Exam: regular rate/rhythm, normal heart sounds Gastrointestinal/Abdomen Exam: soft, No tenderness, No mass Extremity Exam: normal inspection, normal range of motion Back Exam: normal inspection, normal range of motion, No CVA tenderness, No vertebral tenderness Male Genitalia Exam: deferred Rectal Exam: deferred OBJECTIVE DATA Vital Signs: Vital Signs - 24 hr Temp Pulse Resp BP BP Pulse Ox 11/04/19 09:00 18 11/04/19 08:07 66 18 96 11/04/19 08:00 18 11/04/19 07:00 18 11/04/19 06:00 96.5 F 61 16 141/74 98 11/04/19 05:00 20 11/04/19 04:00 98.1 F 60 20 97 11/04/19 02:48 18 11/04/19 02:00 96.5 F 66 18 146/79 96 11/04/19 00:58 22 11/04/19 00:00 73 22 97 11/03/19 23:00 16 11/03/19 22:00 97.3 F 65 16 125/61 97 11/03/19 21:26 18 11/03/19 21:00 18 08/07/20 20:15 68 24 94 L 11/03/19 20:00 99.0 F 70 18 115/65 95 11/03/19 19:00 18 11/03/19 18:00 23 11/03/19 17:35 66 26 H 97 11/03/19 17:00 23 11/03/19 16:00 97.0 F 68 24 119/56 94 L 11/03/19 15:00 22 11/03/19 14:30 88 16 119/75 93 L 11/03/19 14:27 86 18 96 11/03/19 14:08 84 135/71 11/03/19 14:00 15 11/03/19 13:42 94 H 12 94 L 11/03/19 13:00 17 11/03/19 12:00 18 11/03/19 11:21 98.7 F 86 12 135/71 94 L 11/03/19 11:00 16 11/03/19 10:00 21 11/03/19 09:53 94 H 22 94 L Oxygen-Last 24 hours Oxygen Flowrate (L/min)-RT 2 Oxygen Flowrate (L/min)-RT 2 Oxygen Flowrate (L/min)-RT 4 Oxygen Flowrate (L/min)-RT 4 Pain Assessment - Last Documented Pain Intensity 0 Pain Scale Used 0-10 Pain Scale Intake and Output: Intake & Output 11/01/19 11/02/19 11/03/19 11/04/19 11:59 11:59 11:59 11:59 Intake Total 360 1776 Output Total 250 1100 Balance 110 676 Weight 89.3 kg Lab Results: Lab Results-Last 24 Hours 11/04/19 11/04/19 Range/Units 06:27 06:27 WBC 1.8 L* (4.0-10.5) K/mm3 RBC 4.24 (4.1-5.6) M/mm3 Hgb 13.1 (12.5-18.0) gm/dl Hct 42.2 (42-50) % MCV 99.5 (78-100) fl MCH 30.9 (26-32) pg MCHC 31.0 L (32-36) g/dl RDW 13.5 (11.5-14.0) % Plt Count 63 L (150-450) K/mm3 MPV 12.6 H (7.5-11.0) fl Gran % 47.5 (36.0-66.0) % Eos # (Auto) 0.06 (0-0.5) Absolute Lymphs (auto) 0.70 L (1.0-4.6) Absolute Monos (auto) 0.18 (0.0-1.3) Lymphocytes % 38.7 (24.0-44.0) % Monocytes % 9.9 (0.0-12.0) % Eosinophils % 3.3 (0.00-5.0) % Basophils % 0.6 (0.0-0.4) % Absolute Granulocytes 0.86 L (1.4-6.9) Basophils # 0.01 (0-0.4) Sodium 138 (137-145) mmol/L Potassium 4.0 (3.5-5.1) mmol/L Chloride 104 (98-107) mmol/L Carbon Dioxide 31 H (22-30) mmol/L Anion Gap 7.7 (5-15) MEQ/L BUN 10 (9-20) mg/dL Creatinine 0.83 (0.66-1.25) mg/dL Estimated GFR > 60.0 ML/MIN Glucose 88 (74-106) mg/dL Calcium 8.4 (8.4-10.2) mg/dL Total Bilirubin 0.30 (0.2-1.3) mg/dL AST 32 (17-59) U/L ALT 29 (0-50) U/L Alkaline Phosphatase 86 (38-126) U/L Serum Total Protein 6.0 L (6.3-8.2) g/dL Albumin 3.5 (3.5-5.0) g/dL Radiology Exams: Radiology Procedures Category Date Time Status CHEST 1 VIEW (PORTABLE) Stat Exams 11/03/19 00:01 Completed Assessment/Plan (1) Lab test positive for detection of COVID-19 virus Current Visit: Yes Status: Acute Assessment & Plan: Chief Complaint Diagnosis covid 19 positive, c/o shortness of breath for 1 -2 days Allergies Allergy/AdvReac Type Severity Reaction Status Date / Time No Known Drug Allergies Allergy Verified 11/03/19 03:35 Vital Signs (Last 24 hours) Temp Pulse Resp BP BP Pulse Ox 11/04/19 09:00 18 08/08/20 08:07 66 18 96 11/04/19 08:00 18 11/04/19 07:00 18 11/04/19 06:00 96.5 F 61 16 141/74 98 11/04/19 05:00 20 11/04/19 04:00 98.1 F 60 20 97 11/04/19 02:48 18 11/04/19 02:00 96.5 F 66 18 146/79 96 11/04/19 00:58 22 11/04/19 00:00 73 22 97 11/03/19 23:00 16 11/03/19 22:00 97.3 F 65 16 125/61 97 11/03/19 21:26 18 11/03/19 21:00 18 11/03/19 20:15 68 24 94 L 11/03/19 20:00 99.0 F 70 18 115/65 95 11/03/19 19:00 18 11/03/19 18:00 23 11/03/19 17:35 66 26 H 97 11/03/19 17:00 23 11/03/19 16:00 97.0 F 68 24 119/56 94 L 11/03/19 15:00 22 11/03/19 14:30 88 16 119/75 93 L 11/03/19 14:27 86 18 96 11/03/19 14:08 84 135/71 11/03/19 14:00 15 11/03/19 13:42 94 H 12 94 L 11/03/19 13:00 17 11/03/19 12:00 18 11/03/19 11:21 98.7 F 86 12 135/71 94 L 11/03/19 11:00 16 11/03/19 10:00 21 11/03/19 09:53 94 H 22 94 L Home Medications Medication Instructions Recorded Confirmed Last Taken Type Albuterol Sulfate 2.5 mg IH Q6H 11/03/19 11/03/19 Unknown History Albuterol Sulfate [Ventolin Hfa] 2 puffs IH TID 11/03/19 11/03/19 Unknown History Alendronate Sodium 70 mg 70 mg PO WEEKLY 11/03/19 11/03/19 Unknown History [Fosamax 70 MG] Aspirin EC 81 mg [Ecotrin 81 81 mg PO DAILY 11/03/19 11/03/19 Unknown History mg] Atenolol 50 mg [Tenormin 50 50 mg PO DAILY 11/03/19 11/03/19 Unknown History mg] Brimonidine Tartrate [Alphagan 1 drop OP DAILY 11/03/19 11/03/19 Unknown History P 0.15%] Calcium Carbonate/Vitamin D3 1 each PO DAILY 11/03/19 11/03/19 Unknown History [Calcium 500Mg-Vit D3 15Mcg Tab] Diphenhydramine HCl 25 mg 25 mg PO DAILY 11/03/19 11/03/19 Unknown History [Benadryl 25 mg Capsule] Dorzolamide HCl/Pf [Dorzolamide 2% 1 drop OP BID 11/03/19 11/03/19 Unknown History Eye Drop] Fluticasone/Umeclidin/Vilanter 1 each IH DAILY 11/03/19 11/03/19 Unknown History [Trelegy Ellipta 100-62.5-25] Guaifenesin 600 mg ER [Mucinex 600 mg PO BID 11/03/19 11/03/19 Unknown History 600MG ER Tabs] Simvastatin 20Mg [Zocor 20Mg] 40 mg PO DAILY 11/03/19 11/03/19 Unknown His tory Current Medications Generic Name Dose Route Start Last Admin Trade Name Freq PRN Reason Stop Dose Admin Acetaminophen 650 mg 11/03/19 06:39 11/04/19 02:25 Tylenol 325 Mg PO 12/03/19 06:38 650 mg Q4H PRN PRN Administration PAIN, FEVER, HEADACHE Albuterol Sulfate 4 gm 11/03/19 13:00 11/04/19 07:33 Ventolin Hfa Mdi IH 12/03/19 12:59 4 gm TIDRT MENDY Administration Alendronate Sodium 70 mg 11/05/19 06:00 Fosamax 70 Mg PO 12/05/19 05:59 Q7D MENDY Aspirin 81 mg 11/03/19 14:00 11/03/19 14:07 Ecotrin 81 Mg PO 12/03/19 13:59 81 mg DAILY MENDY Administration Atenolol 50 mg 11/03/19 14:00 11/03/19 14:08 Tenormin 50 Mg PO 12/03/19 13:59 50 mg DAILY MENDY Administration Brimonidine Tartrate 0 ml 11/03/19 14:00 11/03/19 14:19 Alphagan P 0.15% OP 12/03/19 13:59 1 ml DAILY MENDY Administration Calcium Carbonate 1 tab 11/03/19 14:00 11/03/19 14:19 Calcium 500mg W/Vit D Tablet PO 12/03/19 13:59 1 tab DAILY MENDY Administration Diphenhydramine HCl 25 mg 11/03/19 14:00 11/03/19 14:07 Benadryl 25 Mg Capsule PO 12/03/19 13:59 25 mg DAILY MENDY Administration Guaifenesin 600 mg 11/03/19 14:00 11/03/19 22:00 Mucinex 600mg Er Tabs PO 12/03/19 13:59 600 mg BID MENDY Administration Sodium Chloride 1,000 mls @ 50 mls/hr 11/03/19 06:39 11/04/19 02:25 Sodium Chloride 0.9% 1000 Ml IV 12/03/19 06:38 50 mls/hr .Q20H MENDY Administration Ceftriaxone Sodium/Dextrose 1 g in 50 mls @ 100 mls/hr 11/03/19 22:00 11/03/19 22:00 Rocephin 1 Gm-D5w 50 Ml Bag IV 12/03/19 21:59 100 mls/hr QPM MENDY Administration Miscellaneous Information 1 each 11/03/19 13:15 Medication Intervention MC 12/03/19 13:14 .RN TO CHECK ON MENDY Ondansetron HCl 4 mg 11/03/19 06:39 Zofran 4 Mg/2 Ml Vial IV 12/03/19 06:38 Q6H PRN PRN NAUSEA/VOMITING Fluticasone/Salmeterol 1 each 11/03/19 11:00 11/04/19 07:34 Advair 250-50 Diskus 14 Dose IH 12/03/19 10:59 1 each BIDRT MENDY Administration Simvastatin 40 mg 11/03/19 14:00 11/03/19 14:07 Zocor 20mg PO 12/03/19 13:59 40 mg DAILY MENDY Administration Discontinued Medications Generic Name Dose Route Start Last Admin Trade Name Rosalva PRN Reason Stop Dose Admin Sodium Chloride 1,000 mls @ 999 mls/hr 11/02/19 22:56 11/03/19 00:18 Sodium Chloride 0.9% 1000 Ml IV 11/02/19 23:56 Infused .Q1H1M STA Infusion Sodium Chloride Confirm 11/02/19 23:08 Sodium Chloride 0.9% 1000 Ml Administered 11/02/19 23:09 Dose 1,000 mls @ ud .ROUTE .STK-MED ONE Ceftriaxone Sodium/Dextrose 1 g in 50 mls @ 100 mls/hr 11/03/19 02:08 11/03/19 02:32 Rocephin 1 Gm-D5w 50 Ml Bag IV 11/03/19 02:37 100 ml/hr STAT STA 100 mls/hr Administration Ceftriaxone Sodium/Dextrose Confirm 11/03/19 02:27 Rocephin 1 Gm-D5w 50 Ml Bag Administered 11/03/19 02:28 Dose 1 g in 50 mls @ ud IV .STK-MED ONE Intake & Output (Last 24 hours) 11/01/19 11/02/19 11/03/19 11/04/19 11:59 11:59 11:59 11:59 Intake Total 360 1776 Output Total 250 1100 Balance 110 676 Weight 89.3 kg Laboratory Results (Last 24 hours) 11/04/19 11/04/19 06:27 06:27 WBC 1.8 L* RBC 4.24 Hgb 13.1 Hct 42.2 MCV 99.5 MCH 30.9 MCHC 31.0 L RDW 13.5 Plt Count 63 L MPV 12.6 H Gran % 47.5 Eos # (Auto) 0.06 Absolute Lymphs (auto) 0.70 L Absolute Monos (auto) 0.18 Lymphocytes % 38.7 Monocytes % 9.9 Eosinophils % 3.3 Basophils % 0.6 Absolute Granulocytes 0.86 L Basophils # 0.01 Sodium 138 Potassium 4.0 Chloride 104 Carbon Dioxide 31 H Anion Gap 7.7 BUN 10 Creatinine 0.83 Estimated GFR > 60.0 Glucose 88 Calcium 8.4 Total Bilirubin 0.30 AST 32 ALT 29 Alkaline Phosphatase 86 Serum Total Protein 6.0 L Albumin 3.5 Orders (Last 24 hours) Category Date Time Status CBC W DIFF AM.LAB Lab 11/04/19 06:27 Completed CMP AM.LAB Lab 11/04/19 06:27 Completed Albuterol 8 gm Mdi Hfa [Ventolin Hfa MDI] Med 11/03/19 13:00 Active 4 gm IH TIDRT Alendronate Sodium 70 mg [Fosamax 70 MG] Med 11/05/19 06:00 Active 70 mg PO Q7D Aspirin EC 81 mg [Ecotrin 81 mg] Med 11/03/19 14:00 Active 81 mg PO DAILY Atenolol 50 mg [Tenormin 50 mg] Med 11/03/19 14:00 Active 50 mg PO DAILY Brimonidine Tartrate [Alphagan P 0.15%] Med 11/03/19 14:00 Active 0 ml OP DAILY Calcium Carb/Vitamin D 500 mg* [Calcium 500MG W/Vit D Med 11/03/19 14:00 Active Tablet] 1 tab PO DAILY Ceftriaxone 1 GM/50 ML PREMIX* [ROCEPHIN 1 Gm-D5w 50 ml Med 11/03/19 22:00 Active Bag] 1 g in 50 ml IV QPM Diphenhydramine HCl 25 mg [Benadryl 25 mg Capsule Med 11/03/19 14:00 Active ] 25 mg PO DAILY Fluticasone/Salmeterol Disc [Advair 250-50 Diskus 14 Med 11/03/19 11:00 Active Dose] 1 each IH BIDRT Guaifenesin 600 mg ER [Mucinex 600MG ER Tabs] Med 11/03/19 14:00 Active 600 mg PO BID Medication Intervention Med 11/03/19 13:15 Active 1 each MC .RN TO CHECK ON Simvastatin 20Mg [Zocor 20Mg] Med 11/03/19 14:00 Active 40 mg PO DAILY Pulse Oximetry .continuos RT 11/03/19 10:28 Active Respiratory MDI BID RT 11/03/19 10:29 Active Respiratory Therapy Assessment DAILY RT 11/03/19 10:28 Active Patient Care Notes (Last 24 hours) 11/04/19 09:03 SBAR Note by Lyssa Sebastian SITUATION I am calling about ESA HOOPER the patient's code status is Full Code The problem I am calling about is: Called DR Leiva with pt's WBC level; new order received to RYAN Tierney. ASSESSMENT RECOMMENDATION Physician notified at [id number] New Orders received: Vital Signs (Last 4 hours) Temp Pulse Resp BP Pulse Ox 11/04/19 09:00 18 11/04/19 08:07 66 18 96 11/04/19 08:00 18 11/04/19 07:00 18 11/04/19 06:00 96.5 F 61 16 141/74 98 Diagnois, Code Status Date of Arrival on Unit 11/03/19 Admitted From Emergency Dept Diagnosis covid 19 positive, c/o shortness of breath for 1 -2 days Resucitation Status Full Code Intake and Output 24 Hours 11/04/19 11/05/19 06:59 06:59 Intake Total 2136 Output Total 1250 100 Balance 886 -100 Weight 89.3 kg Intake: Intake, Oral Amount 1330 Intake, IV Amount 806 Output: Output, Urine Amount 1250 100 Other: Number of Voids 2 Physical Assessment Anxiety Level None,at ease,Awake,Calm Mental Status Alert Patient Orientation Person,Place,Time Coma Scale Total 15 Breath Sounds [Posterior Clear,Diminished Bilateral Throughout] Breath Sounds [Anterior Clear,Diminished Bilateral] Breath Sounds [Posterior Wheezes,Diminished Bilateral Throughout] Breath Sounds [Anterior Wheezes,Diminished Bilateral Throughout] Cardiac Rhythm-[facility] Sinus Rhythm Change from Baseline: No Bowel Sounds [All Quadrants] Active Abdomen Description Soft,Non-Tender Urine Appearance Clear Urine Color Yellow Skin Color Normal for Race Skin Temperature Warm Pain Scale (Last 24 Hours) Pain Intensity 0 Pain Intensity 0 Pain Intensity 5 Pain Intensity 5 Pain Intensity 0 Pain Intensity 0 Pain Intensity 5 Pain Intensity 0 Pain Intensity 0 PAST MEDICAL HISTORY Neurological History No Pertinent History ENT History No Pertinent History Endocrine Medical History No Pertinent History Respiratory History COPD Cardiac History Coronary Artery Disease GI Medical History No Pertinent History History No Pertinent History Pyscho-Social History No Pertinent History Communicable Disease No Pertinent History Comment pt poor historian states hyperkalemia Lab Results (Last 24 Hours) 11/04/19 11/04/19 Range/Units 06:27 06:27 WBC 1.8 L* (4.0-10.5) K/mm3 RBC 4.24 (4.1-5.6) M/mm3 Hgb 13.1 (12.5-18.0) gm/dl Hct 42.2 (42-50) % MCV 99.5 (78-100) fl MCH 30.9 (26-32) pg MCHC 31.0 L (32-36) g/dl RDW 13.5 (11.5-14.0) % Plt Count 63 L (150-450) K/mm3 MPV 12.6 H (7.5-11.0) fl Gran % 47.5 (36.0-66.0) % Eos # (Auto) 0.06 (0-0.5) Absolute Lymphs (auto) 0.70 L (1.0-4.6) Absolute Monos (auto) 0.18 (0.0-1.3) Lymphocytes % 38.7 (24.0-44.0) % Monocytes % 9.9 (0.0-12.0) % Eosinophils % 3.3 (0.00-5.0) % Basophils % 0.6 (0.0-0.4) % Absolute Granulocytes 0.86 L (1.4-6.9) Basophils # 0.01 (0-0.4) Sodium 138 (137-145) mmol/L Potassium 4.0 (3.5-5.1) mmol/L Chloride 104 (98-107) mmol/L Carbon Dioxide 31 H (22-30) mmol/L Anion Gap 7.7 (5-15) MEQ/L BUN 10 (9-20) mg/dL Creatinine 0.83 (0.66-1.25) mg/dL Estimated GFR > 60.0 ML/MIN Glucose 88 (74-106) mg/dL Calcium 8.4 (8.4-10.2) mg/dL Total Bilirubin 0.30 (0.2-1.3) mg/dL AST 32 (17-59) U/L ALT 29 (0-50) U/L Alkaline Phosphatase 86 (38-126) U/L Serum Total Protein 6.0 L (6.3-8.2) g/dL Albumin 3.5 (3.5-5.0) g/dL Orders (Last 24 Hours) Category Date Time Status Albuterol 8 gm Mdi Hfa [Ventolin Hfa MDI] Med 11/03/19 13:00 Active 4 gm IH TIDRT Alendronate Sodium 70 mg [Fosamax 70 MG] Med 11/05/19 06:00 Active 70 mg PO Q7D Aspirin EC 81 mg [Ecotrin 81 mg] Med 11/03/19 14:00 Active 81 mg PO DAILY Atenolol 50 mg [Tenormin 50 mg] Med 11/03/19 14:00 Active 50 mg PO DAILY Brimonidine Tartrate [Alphagan P 0.15%] Med 11/03/19 14:00 Active 0 ml OP DAILY Calcium Carb/Vitamin D 500 mg* [Calcium 500MG W/Vit D Med 11/03/19 14:00 Active Tablet] 1 tab PO DAILY Ceftriaxone 1 GM/50 ML PREMIX* [ROCEPHIN 1 Gm-D5w 50 ml Med 11/03/19 22:00 Active Bag] 1 g in 50 ml IV QPM Diphenhydramine HCl 25 mg [Benadryl 25 mg Capsule Med 11/03/19 14:00 Active ] 25 mg PO DAILY Fluticasone/Salmeterol Disc [Advair 250-50 Diskus 14 Med 11/03/19 11:00 Active Dose] 1 each IH BIDRT Guaifenesin 600 mg ER [Mucinex 600MG ER Tabs] Med 11/03/19 14:00 Active 600 mg PO BID Medication Intervention Med 11/03/19 13:15 Active 1 each MC .RN TO CHECK ON Simvastatin 20Mg [Zocor 20Mg] Med 11/03/19 14:00 Active 40 mg PO DAILY Pulse Oximetry .continuos RT 11/03/19 10:28 Active Respiratory MDI BID RT 11/03/19 10:29 Active Respiratory Therapy Assessment DAILY RT 11/03/19 10:28 Active Active Visit Medications Generic Name Dose Route Start Last Admin Trade Name Freq PRN Reason Stop Dose Admin Acetaminophen 650 mg 11/03/19 06:39 11/04/19 02:25 Tylenol 325 Mg PO 12/03/19 06:38 650 mg Q4H PRN PRN Administration PAIN, FEVER, HEADACHE Albuterol Sulfate 4 gm 11/03/19 13:00 11/04/19 07:33 Ventolin Hfa Mdi IH 12/03/19 12:59 4 gm TIDRT MENDY Administration Alendronate Sodium 70 mg 11/05/19 06:00 Fosamax 70 Mg PO 12/05/19 05:59 Q7D MENDY Aspirin 81 mg 11/03/19 14:00 11/03/19 14:07 Ecotrin 81 Mg PO 12/03/19 13:59 81 mg DAILY MENDY Administration Atenolol 50 mg 11/03/19 14:00 11/03/19 14:08 Tenormin 50 Mg PO 12/03/19 13:59 50 mg DAILY MENDY Administration Brimonidine Tartrate 0 ml 11/03/19 14:00 11/03/19 14:19 Alphagan P 0.15% OP 12/03/19 13:59 1 ml DAILY MENDY Administration Calcium Carbonate 1 tab 11/03/19 14:00 11/03/19 14:19 Calcium 500mg W/Vit D Tablet PO 12/03/19 13:59 1 tab DAILY MENDY Administration Diphenhydramine HCl 25 mg 11/03/19 14:00 11/03/19 14:07 Benadryl 25 Mg Capsule PO 12/03/19 13:59 25 mg DAILY MENDY Administration Guaifenesin 600 mg 11/03/19 14:00 11/03/19 22:00 Mucinex 600mg Er Tabs PO 12/03/19 13:59 600 mg BID MENDY Administration Sodium Chloride 1,000 mls @ 50 mls/hr 11/03/19 06:39 11/04/19 02:25 Sodium Chloride 0.9% 1000 Ml IV 12/03/19 06:38 50 mls/hr .Q20H MENDY Administration Ceftriaxone Sodium/Dextrose 1 g in 50 mls @ 100 mls/hr 11/03/19 22:00 11/03/19 22:00 Rocephin 1 Gm-D5w 50 Ml Bag IV 12/03/19 21:59 100 mls/hr QPM MENDY Administration Miscellaneous Information 1 each 11/03/19 13:15 Medication Intervention 12/03/19 13:14 .RN TO CHECK ON MENDY Ondansetron HCl 4 mg 11/03/19 06:39 Zofran 4 Mg/2 Ml Vial IV 12/03/19 06:38 Q6H PRN PRN NAUSEA/VOMITING Fluticasone/Salmeterol 1 each 11/03/19 11:00 11/04/19 07:34 Advair 250-50 Diskus 14 Dose IH 12/03/19 10:59 1 each BIDRT MENDY Administration Simvastatin 40 mg 11/03/19 14:00 11/03/19 14:07 Zocor 20mg PO 12/03/19 13:59 40 mg DAILY MENDY Administration Home Medications Medication Instructions Recorded Confirmed Last Taken Type Albuterol Sulfate 2.5 mg IH Q6H 11/03/19 11/03/19 Unknown History Albuterol Sulfate [Ventolin Hfa] 2 puffs IH TID 11/03/19 11/03/19 Unknown History Alendronate Sodium 70 mg 70 mg PO WEEKLY 11/03/19 11/03/19 Unknown History [Fosamax 70 MG] Aspirin EC 81 mg [Ecotrin 81 81 mg PO DAILY 11/03/19 11/03/19 Unknown History mg] Atenolol 50 mg [Tenormin 50 50 mg PO DAILY 11/03/19 11/03/19 Unknown History mg] Brimonidine Tartrate [Alphagan 1 drop OP DAILY 11/03/19 11/03/19 Unknown History P 0.15%] Calcium Carbonate/Vitamin D3 1 each PO DAILY 11/03/19 11/03/19 Unknown History [Calcium 500Mg-Vit D3 15Mcg Tab] Diphenhydramine HCl 25 mg 25 mg PO DAILY 11/03/19 11/03/19 Unknown History [Benadryl 25 mg Capsule] Dorzolamide HCl/Pf [Dorzolamide 2% 1 drop OP BID 11/03/19 11/03/19 Unknown History Eye Drop] Fluticasone/Umeclidin/Vilanter 1 each IH DAILY 11/03/19 11/03/19 Unknown History [Trelegy Ellipta 100-62.5-25] Guaifenesin 600 mg ER [Mucinex 600 mg PO BID 11/03/19 11/03/19 Unknown History 600MG ER Tabs] Simvastatin 20Mg [Zocor 20Mg] 40 mg PO DAILY 11/03/19 11/03/19 Unknown History Initialized on 11/04/19 09:03 - END OF NOTE 11/03/19 18:38 Nursing Note by Conchita De Luna C/o back pain from lying in bed. Tylenol given and up in chair at present. Initialized on 11/03/19 18:38 - END OF NOTE Code(s): U07.1 - COVID-19 (2) Right lower lobe pneumonia Current Visit: Yes Status: Acute Code(s): J18.9 - PNEUMONIA, UNSPECIFIED ORGANISM
[2019-11-04] MEDS: ZOCOR 20MG PO SCH (09:45)
[2019-11-04] MEDS: Mucinex 600MG ER Tabs PO SCH ×2 (09:45→22:22)
[2019-11-04] MEDS: Calcium 500MG W/Vit D Tablet PO SCH (09:46)
[2019-11-04] MEDS: ECOTRIN 81 MG PO SCH (09:46)
[2019-11-04] MEDS: TENORMIN 50 MG PO SCH (09:46)
[2019-11-04] MEDS: BENADRYL 25 MG CAPSULE PO SCH (09:46)
[2019-11-04] MEDS: Alphagan P 0.15% OP SCH (09:47)
[2019-11-04] MEDS ORDERED: [UNRECOGNIZED DRUG - OTHER] PO SCH (10:00)
[2019-11-04] MEDS ORDERED: VITAMIN D3 PO SCH (10:00)
[2019-11-04] MEDS ORDERED: CALCIUM CARBONATE PO SCH (10:00)
[2019-11-04 10:35] LABS: Slide Review 1 YES
[2019-11-05] MEDS ORDERED: Fosamax 70 MG PO SCH (06:00)
[2019-11-05] MEDS: ADVAIR 250-50 DISKUS 14 DOSE IH SCH ×2 (07:17)
[2019-11-05] MEDS: Ventolin Hfa MDI IH SCH (07:17)
[2019-11-05] MEDS: Sodium Chloride 0.9% 1000 ML 1,000 ML IV SCH (07:32)
[2019-11-05] MEDS: Mucinex 600MG ER Tabs PO SCH (09:08)
[2019-11-05] MEDS: BENADRYL 25 MG CAPSULE PO SCH (09:08)
[2019-11-05] MEDS: TENORMIN 50 MG PO SCH (09:08)
[2019-11-05] MEDS: ECOTRIN 81 MG PO SCH (09:08)
[2019-11-05] MEDS: ZOCOR 20MG PO SCH (09:08)
[2019-11-05] MEDS: Calcium 500MG W/Vit D Tablet PO SCH (09:09)
[2019-11-05 09:10] VITALS: BP 127/62
[2019-11-05] MEDS: Alphagan P 0.15% OP SCH (09:18)
[2019-11-05 09:28] LABS: Hematocrit 41.6 % (42-50); Mean Cell Volume 98.6 fl (78-100); Mean Corpuscular Hemoglobin 30.8 pg (26-32); Mean Corpuscular Hgb Concent. 31.3 g/dl (32-36); Mean Platelet Volume 12.8 fl (7.5-11.0); Platelet Count 62 K/mm3 (150-450); Red Blood Count 4.22 M/mm3 (4.1-5.6); Red Cell Distribution Width 13.4 % (11.5-14.0)
[2019-11-05 09:35] LABS: White Blood Count 1.9 K/mm3 (4.0-10.5)
[2019-11-05 09:47] LABS: ANION GAP 7.6 MEQ/L (5-15); BLOOD UREA NITROGEN 9 mg/dL (9-20); CHLORIDE 103 mmol/L (98-107); Calcium 8.3 mg/dL (8.4-10.2); Carbon Dioxide 32 mmol/L (22-30); Creatinine 1 0.86 mg/dL (0.66-1.25); Glucose 116 mg/dL (74-106); SODIUM 138 mmol/L (137-145)
[2019-11-05 11:48] LABS: Slide Review YES
[2019-11-05 11:50] VITALS: PULSE 68; O2SAT 93
== END 2019-11-05 12:55 | disposition home health service (06) | DRG 177 ==
LOC: ED 22:12 → MED SURG 11-03 06:37
PROVIDERS: ADMIT General Practice; ATTEND General Practice
DX: U07.1 COVID-19 (principal); J18.9 Pneumonia, unspecified organism; J44.9 Chronic obstructive pulmonary disease, unspecified; Z99.81 Dependence on supplemental oxygen; Z79.899 Other long term (current) drug therapy; I25.10 Atherosclerotic heart disease of native coronary artery without angina pectoris
CPT/HCPCS: 36000; 36415; 71045; 80048; 80053; 81001; 82728; 83605; 83615; 85025; 85027; 86308; 87040; 87631; 87651; 93005; 94640; 94760; 94762; 96360; 96365; 99284; 99291; U0003; J0696; A9270-GY

== ENCOUNTER 2021-05-10 17:02 | Emergency (ER) | payer MEDICARE ==
[2021-05-10 17:14] VITALS: BP 147/100; PULSE 120; O2SAT 93
[2021-05-10] MEDS ORDERED: Adacel Vial IM ONE ×2 (17:27→17:32)
--- NOTE | 2021-05-10 17:30 | ERPHSYRPT ---
- History of Present Illness Time Seen by Provider: 05/10/21 17:12 Source: patient Exam Limitations: no limitations Patient Subjective Stated Complaint: pt here for injury to right hand , he hit hand on strp railing Triage Nursing Assessment: pt has large skin tear to top of right hand , small amt of bleeding noted Physician History: 85-year-old male [id number] presented in the ER with chief complaint of skin tear right hand dorsum which got between car door and porch wall prior to arrival. There was bleeding initially but stopped with applying pressure. Minimal dull aching pain. No difficulty movements of fingers. No numbness or tingling in the fingers. Unsure about tetanus status. Timing/Duration: today Quality: burning Severity: mild Location: extremities Possible Causes: other Allergies/Adverse Reactions: No Known Drug Allergies Allergy (Verified 05/10/21 17:15) Home Medications: Albuterol Sulfate 2.5 mg IH Q6H 11/03/19 [History] Albuterol Sulfate [Ventolin Hfa] 2 puffs IH TID 11/03/19 [History] Alendronate Sodium 70 mg [Fosamax 70 MG] 70 mg PO WEEKLY 11/03/19 [History] Aspirin EC 81 mg [Ecotrin 81 mg] 81 mg PO DAILY 11/03/19 [History] Atenolol 50 mg [Tenormin 50 mg] 50 mg PO DAILY 11/03/19 [History] Brimonidine Tartrate [Alphagan P 0.15%] 1 drop OP DAILY 11/03/19 [History] Calcium Carbonate/Vitamin D3 [Calcium 500Mg-Vit D3 15Mcg Tab] 1 each PO DAILY 11/03/19 [History] Diphenhydramine HCl 25 mg [Benadryl 25 mg Capsule] 25 mg PO DAILY 11/03/19 [History] Dorzolamide HCl/Pf [Dorzolamide 2% Eye Drop] 1 drop OP BID 11/03/19 [History] Fluticasone/Umeclidin/Vilanter [Trelegy Ellipta 100-62.5-25] 1 each IH DAILY 11/03/19 [History] Guaifenesin 600 mg ER [Mucinex 600MG ER Tabs] 600 mg PO BID 11/03/19 [History] Simvastatin 20Mg [Zocor 20Mg] 40 mg PO DAILY 11/03/19 [History] Hx Tetanus, Diphtheria Vaccination/Date Given: No Hx Influenza Vaccination/Date Given: No Hx Pneumococcal Vaccination/Date Given: Yes Immunizations Up to Date: Yes Travel Risk - International Travel Have you traveled outside of the country in past 3 weeks: No - Coronavirus Screening Are you exhibiting any of the following symptoms?: No Close contact with a COVID-19 positive Pt in past 14-21 Days: No - Vaccine Status Have you recieved a Covid-19 vaccination: Yes [employer]: Moderna - Vaccination Dates Date of 2cond Vaccination (if applicable): 2020 - Review of Systems Constitutional: No Symptoms Ears, Nose, & Throat: No Symptoms Respiratory: No Symptoms Cardiac: No Symptoms Abdominal/Gastrointestinal: No Symptoms Musculoskeletal: Injury Skin: Skin Lesions Neurological: Irritability Psychological: No Symptoms Endocrine: No Symptoms - Past Medical History Pertinent Past Medical History: Yes Neurological History: No Pertinent History ENT History: No Pertinent History Cardiac History: Coronary Artery Disease Respiratory History: COPD Endocrine Medical History: No Pertinent History Musculoskeletal History: No Pertinent History GI Medical History: No Pertinent History History: No Pertinent History Psycho-Social History: No Pertinent History Male Reproductive Disorders: No Pertinent History Other Medical History: pt poor historian. states hyperkalemia - Past Surgical History Past Surgical History: Yes Neuro Surgical History: No Pertinent History Cardiac: Cardiac Catheterization, Cardiac Stent Respiratory: No Pertinent History Gastrointestinal: No Pertinent History Genitourinary: No Pertinent History Musculoskeletal: No Pertinent History Male Surgical History: No Pertinent History - Social History Smoking Status: Former smoker How long have you smoked: 50 yr Exposure to second hand smoke: No Drug Use: none Patient Lives Alone: No - Nursing Vital Signs Nursing Vital Signs: Initial Vital Signs Temperature 97.2 F 05/10/21 17:10 Pulse Rate 120 H 05/10/21 17:10 Respiratory Rate 18 05/10/21 17:10 Blood Pressure 147/100 05/10/21 17:10 O2 Sat by Pulse Oximetry 93 L 05/10/21 17:10 Pain Scale Pain Intensity 3 - Physical Exam General Appearance: no apparent distress, alert Eye Exam: PERRL/EOMI Ears, Nose, Throat Exam: normal ENT inspection Neck Exam: normal inspection, supple, full range of motion Respiratory Exam: normal breath sounds, lungs clear Cardiovascular Exam: normal heart sounds, tachycardia Extremity Exam: normal range of motion, other (Superficial skin tear V-shaped right hand dorsum on the lateral side from second metacarpal phalangeal joint to mid hand. No active spurting but minimal oozing. Intact distal neurovascular.) Neurologic Exam: alert, oriented x 3, cooperative, fisher scallop II-XII nml as tested Skin Exam: normal color SpO2 Interpretation: normal SpO2: 93 O2 Delivery: Room Air Procedures - Laceration/Wound Repair Right Dorsal Hand Time of Procedure: 09:00 Wound Location: hand Wound Length (cm): 9 Wound's Depth, Shape: superficial Wound Explored: clean Irrigated: Yes Hibiclens Prep: Yes Wound Repaired With: Steri-strips Layer Closure?: No Sterile Dressing Applied?: Yes - Progress Progress: improved Progress Note: 05/10/21 17:30 Tetanus is updated. Superficial skin tear, Steri-Strips applied. Cannot stay check. Recommended outpatient primary care follow-up and may need wound care. Counseled pt/family regarding: diagnosis, need for follow-up - Departure Departure Disposition: Home Clinical Impression: Skin tear of hand without complication Qualifiers: Encounter type: initial encounter Laterality: right Qualified Code(s): S61.411A - Laceration without foreign body of right hand, initial encounter Condition: Stable Critical Care Time: No Referrals: JAMES STEVENS MD [Primary Care Provider] - Follow up/PCP as directed (In 2 days for reevaluation) Instructions: Wound Care (DC) Additional Instructions: Take Tylenol as needed. Follow-up with primary care for reevaluation and may need wound care referral. Avoid exertional activities with right hand. Return to ER for increasing pain swelling, difficulty movements of fingers/fever chills etc.
== END 2021-05-10 18:09 | disposition home or self-care (01) ==
LOC: ED 17:02
DX: S61.411A Laceration without foreign body of right hand, initial encounter (principal); W23.1XXA Caught, crushed, jammed, or pinched between stationary objects, initial encounter; I25.10 Atherosclerotic heart disease of native coronary artery without angina pectoris; J44.9 Chronic obstructive pulmonary disease, unspecified; Z79.899 Other long term (current) drug therapy
CPT/HCPCS: 90471; 90715; 99283

== ENCOUNTER 2021-12-19 09:50 | Emergency (ER) | payer MEDICARE ==
--- NOTE | 2021-12-19 10:18 | ERPHSYRPT ---
- History of Present Illness Time Seen by Provider: 12/19/21 09:54 Historian: patient Exam Limitations: no limitations Patient Subjective Stated Complaint: pt here for right sided abd pain for a month, states pain is off and on, no n/v/d. no fever Triage Nursing Assessment: pt alert, walked in, o2 palced as per home, resp labored with excertion, face mask in place, skin w.d.p, abdsoft Physician History: 86 years old male with history of hypertension, hyperlipidemia, coronary artery disease status post stenting presented in the ER with chief complaint of right flank/right lower quadrant pain intermittent for almost 1 month without any significant aggravating or relieving factors denies any urinary complaints. No fevers or chills reported. Patient is moving to [place] for winter and wants to make sure he does not have anything acute going on. Timing/Duration: week(s), intermittent, improved Activities at Onset: rest Quality: cramping, sharpness Abdominal Pain Onset Location: RLQ, flank Severity of Pain-Max: moderate Severity of Pain-Current: none Modifying Factors: Improves With: nothing Associated Symptoms: denies symptoms Previous symptoms: no prior history Allergies/Adverse Reactions: No Known Drug Allergies Allergy (Verified 12/19/21 10:08) Home Medications: Albuterol Sulfate 2.5 mg IH Q6H 11/03/19 [History] Albuterol Sulfate [Ventolin Hfa] 2 puffs IH TID 11/03/19 [History] Alendronate Sodium 70 mg [Fosamax 70 MG] 70 mg PO WEEKLY 11/03/19 [History] Aspirin EC 81 mg [Ecotrin 81 mg] 81 mg PO DAILY 11/03/19 [History] Atenolol 50 mg [Tenormin 50 mg] 50 mg PO DAILY 11/03/19 [History] Brimonidine Tartrate [Alphagan P 0.15%] 1 drop OP DAILY 11/03/19 [History] Calcium Carbonate/Vitamin D3 [Calcium 500Mg-Vit D3 15Mcg Tab] 1 each PO DAILY 11/03/19 [History] Dorzolamide HCl/Pf [Dorzolamide 2% Eye Drop] 1 drop OP BID 11/03/19 [History] Fluticasone/Umeclidin/Vilanter [Trelegy Ellipta 100-62.5-25] 1 each IH DAILY 11/03/19 [History] Simvastatin 20Mg [Zocor 20Mg] 40 mg PO DAILY 11/03/19 [History] Hx Tetanus, Diphtheria Vaccination/Date Given: No Hx Influenza Vaccination/Date Given: No Hx Pneumococcal Vaccination/Date Given: Yes Immunizations Up to Date: Yes Travel Risk - International Travel Have you traveled outside of the country in past 3 weeks: No - Coronavirus Screening Close contact with a COVID-19 positive Pt in past 14-21 Days: No - Vaccine Status Have you recieved a Covid-19 vaccination: Yes [employer]: Moderna - Vaccination Dates Date of 2cond Vaccination (if applicable): 2020 - Review of Systems Constitutional: No Symptoms Eyes: No Symptoms Ears, Nose, & Throat: No Symptoms Respiratory: No Symptoms Cardiac: No Symptoms Abdominal/Gastrointestinal: Abdominal Pain Genitourinary Symptoms: No Symptoms Musculoskeletal: No Symptoms Skin: No Symptoms Neurological: No Symptoms Psychological: No Symptoms Endocrine: No Symptoms Hematologic/Lymphatic: No Symptoms Immunological/Allergic: No Symptoms - Past Medical History Pertinent Past Medical History: Yes Neurological History: No Pertinent History ENT History: No Pertinent History Cardiac History: Coronary Artery Disease, High Cholesterol Respiratory History: COPD Endocrine Medical History: No Pertinent History Musculoskeletal History: No Pertinent History GI Medical History: No Pertinent History History: No Pertinent History Psycho-Social History: No Pertinent History Male Reproductive Disorders: No Pertinent History Other Medical History: pt poor historian. states hyperkalemia - Past Surgical History Past Surgical History: Yes Neuro Surgical History: No Pertinent History Cardiac: Cardiac Catheterization, Cardiac Stent Respiratory: No Pertinent History Gastrointestinal: Cholecystectomy Genitourinary: No Pertinent History Musculoskeletal: No Pertinent History Male Surgical History: No Pertinent History Other Surgical History: bladder scope - Social History Smoking Status: Former smoker How long have you smoked: 50 yr Exposure to second hand smoke: No Drug Use: none Patient Lives Alone: No - Nursing Vital Signs Nursing Vital Signs: Initial Vital Signs Temperature 96.3 F 12/19/21 10:05 Pulse Rate 85 12/19/21 10:05 Respiratory Rate 28 H 12/19/21 10:05 Blood Pressure 119/86 12/19/21 10:05 O2 Sat by Pulse Oximetry 98 09/23/22 10:05 Pain Scale Pain Intensity 4 - Physical Exam General Appearance: no apparent distress, alert Eye Exam: PERRL/EOMI Ears, Nose, Throat Exam: normal ENT inspection Neck Exam: normal inspection Respiratory Exam: normal breath sounds, lungs clear Cardiovascular Exam: regular rate/rhythm, normal heart sounds Gastrointestinal/Abdomen Exam: soft, normal bowel sounds, tenderness (Mild tenderness right flank/right lower quadrant) Back Exam: normal inspection Extremity Exam: normal inspection, normal range of motion Neurologic Exam: alert, oriented x 3, cooperative Skin Exam: normal color SpO2 Interpretation: normal SpO2: 98 O2 Delivery: Room Air Ordered Tests: Active Orders 24 hr Category Date Time Status ABDOMEN AND PELVIS W/0 CONTRAS [CT] Stat Exams 12/19/21 10:15 Completed CBC W DIFF Stat Lab 12/19/21 10:26 Completed CMP Stat Lab 12/19/21 10:14 Completed LIPASE Stat Lab 12/19/21 10:14 Completed UA W/RFX CULTURE Stat Lab 12/19/21 10:17 Completed Lab/Rad Data: Laboratory Result Diagrams 12/19/21 10:26 12/19/21 10:14 Laboratory Results 12/19/21 12/19/21 12/19/21 Range/Units 10:26 10:17 10:14 WBC 3.1 L (4.0-10.5) x10^3/uL RBC 4.10 (4.1-5.6) x10^6/uL Hgb 12.6 (12.5-18.0) g/dL Hct 40.4 L (42-50) % MCV 98.5 (78-100) fL MCH 30.7 (26-32) pg MCHC 31.2 L (32-36) g/dL RDW 12.9 (11.5-14.0) % Plt Count 88 L (150-450) x10^3/uL MPV 13.0 H (7.5-11.0) fL Gran % 58.2 (36.0-66.0) % Immature Gran % (Auto) 0.3 (0.00-0.4) % Nucleat RBC Rel Count 0.0 (0.00-0.1) % Eos # (Auto) 0.12 (0-0.5) x10^3/uL Immature Gran # (Auto) 0.01 (0.00-0.03) x10^3u/L Absolute Lymphs (auto) 0.80 L (1.0-4.6) x10^3/uL Absolute Monos (auto) 0.33 (0.0-1.3) x10^3/uL Absolute Nucleated RBC 0.00 (0.00-0.01) x10^3u/L Lymphocytes % 26.1 (24.0-44.0) % Monocytes % 10.8 (0.0-12.0) % Eosinophils % 3.9 (0.00-5.0) % Basophils % 0.7 (0.0-0.4) % Absolute Granulocytes 1.78 (1.4-6.9) x10^3/uL Basophils # 0.02 (0-0.4) x10^3/uL Sodium 140 (137-145) mmol/L Potassium 4.2 (3.5-5.1) mmol/L Chloride 103 (98-107) mmol/L Carbon Dioxide 33 H (22-30) mmol/L Anion Gap 7.4 (5-15) MEQ/L BUN 16 (9-20) mg/dL Creatinine 0.95 (0.66-1.25) mg/dL Estimated GFR > 60.0 ML/MIN Glucose 106 (74-106) mg/dL Calcium 8.7 (8.4-10.2) mg/dL Total Bilirubin 0.50 (0.2-1.3) mg/dL AST 31 (17-59) U/L ALT 33 (0-50) U/L Alkaline Phosphatase 77 (38-126) U/L Serum Total Protein 6.1 L (6.3-8.2) g/dL Albumin 3.7 (3.5-5.0) g/dL Lipase 38 (23-300) U/L Urinalys Dipstick Clnc MAIN LAB Urine Color YELLOW (YELLOW) Urine Appearance CLEAR (CLEAR) Urine pH 7.0 (5-6) Ur Specific [place] 1.015 (1.005-1.025) POC Urine Protein Conf 30 (Negative) Urine Ketones NEGATIVE (NEGATIVE) Urine Nitrite NEGATIVE (NEGATIVE) Urine Bilirubin NEGATIVE (NEGATIVE) Urine Urobilinogen 1 (0-1) mg/dL Urine Leukocytes NEGATIVE (NEGATIVE) Urine WBC (Auto) 0-2 (0-5) /HPF Urine RBC (Auto) NONE (0-2) /HPF U Epithel Cells (Auto) NONE (FEW) /HPF Urine Bacteria (Auto) NONE (NEGATIVE) /HPF Urine RBC NEGATIVE (0-5) Goyo/ul Ur Culture Indicated? NO Urine Glucose NEGATIVE (NEGATIVE) mg/dL Slides for Path Review YES - Progress Progress: re-examined Progress Note: 12/19/21 12:40 86 years old is evaluated for right flank/right lower quadrant intermittent graciela n. Patient is pain-free while in the ER. Minimal tenderness to deep palpation. Work-up showed white count of 3.1 which patient has chronically low white count and low platelets. Chemistries unremarkable. No UTI. CT abdomen pelvis negative for any acute findings but did shows enlarged prostate and patient does follow-up with urology in [place] for that. At this point I do not know the exact cause of his symptoms but have no acute emergent findings. Recommended outpatient follow-up. May need colonoscopy for further evaluation of any bowel problem. Discussed signs symptoms of worsening needing return to ER which he seems understanding. Stable for discharge. Counseled pt/family regarding: lab results, diagnosis, need for follow-up, rad results - Departure Departure Disposition: Home Clinical Impression: Right sided abdominal pain Condition: Stable Critical Care Time: No Referrals: JAMES STEVENS MD [Primary Care Provider] - Follow Up with PCP/3 days Instructions: Flank Pain Additional Instructions: Take Tylenol as needed. Follow-up with primary care for reevaluation. Keep appointment with urology for further evaluation of enlarged prostate. Return to ER for worsening abdominal pain or if develop nausea vomiting/difficulty urination etc.
[2021-12-19 10:37] LABS: WBC 0-2 /HPF (0-5)
[2021-12-19 10:38] LABS: Appearance CLEAR (CLEAR); Bilirubin NEGATIVE (NEGATIVE); Dipstick done @ ? MAIN LAB; Glucose NEGATIVE (NEGATIVE); Ketones NEGATIVE (NEGATIVE); Nitrite NEGATIVE (NEGATIVE); Protein,Urine Dip 30 (Negative); RBC NEGATIVE Ery/ul (0-5); Specific Gravity 1.015 (1.005-1.025); Urine Cultured Indicated? NO; Urobilinogen 1 mg/dL (0-1)
[2021-12-19 10:45] LABS: Absolute Neutrophil Ct (ANC) 1.78 x10^3/uL (1.4-6.9); Basophil (Absolute #) 0.02 x10^3/uL (0-0.4); Eosinophil % 3.9 % (0.00-5.0); Eosinophil (Absolute #) 0.12 x10^3/uL (0-0.5); Hematocrit 40.4 % (42-50); Hemoglobin 12.6 g/dL (12.5-18.0); Lymphocytes % 26.1 % (24.0-44.0); Mean Cell Volume 98.5 fL (78-100); Mean Corpuscular Hemoglobin 30.7 pg (26-32); Mean Corpuscular Hgb Concent. 31.2 g/dL (32-36); Monocyte (Absolute #) 0.33 x10^3/uL (0.0-1.3); Monocytes % 10.8 % (0.0-12.0); Neutrophil % 58.2 % (36.0-66.0); Platelet Count 88 x10^3/uL (150-450); Red Cell Distribution Width 12.9 % (11.5-14.0); White Blood Count 3.1 x10^3/uL (4.0-10.5)
[2021-12-19 10:55] LABS: ALBUMIN 3.7 g/dL (3.5-5.0); ALKALINE PHOSPHATASE 77 U/L (38-126); ANION GAP 7.4 MEQ/L (5-15); BLOOD UREA NITROGEN 16 mg/dL (9-20); CHLORIDE 103 mmol/L (98-107); Calcium 8.7 mg/dL (8.4-10.2); Carbon Dioxide 33 mmol/L (22-30); Creatinine 1 0.95 mg/dL (0.66-1.25); EST GLOMERULAR FILTRATION RATE > 60.0 ML/MIN; Glucose 106 mg/dL (74-106); LIPASE 38 U/L (23-300); Potassium 4.2 mmol/L (3.5-5.1); SGOT/AST 31 U/L (17-59); SGPT/ALT 33 U/L (0-50); SODIUM 140 mmol/L (137-145); Total Protein 6.1 g/dL (6.3-8.2)
[2021-12-19 11:37] LABS: Slide Review 1 YES
--- NOTE | 2021-12-19 11:53 | XRAY ---
Indication: Right flank pain 1 month. Multiple contiguous axial images obtained through the abdomen and pelvis without contrast using renal stone protocol. Comparison: None Lung bases demonstrates pulmonary emphysema and scattered fibrosis/scarring, greatest right lower lobe. Also tiny calcified/noncalcified granulomas. Heart not enlarged. No renal calculus or evidence for obstructive uropathy in either system. Right upper kidney demonstrates a 2.2 cm cyst. Markedly enlarged and nodular prostate gland measuring at least 6.8 x 6.4 x 7.5 cm impresses on the base of the urinary bladder. Cannot completely exclude urinary bladder base mass on this noncontrast exam. Noncontrasted stomach and bowel loops appear nonobstructed with normal appendix. Mild diffuse scattered colonic fecal debris throughout. Incidental tiny splenic calcified granulomas and cholecystectomy. No free fluid/air. Remaining liver, pancreas, spleen, adrenal glands, kidneys, ureters, and bladder are unremarkable for noncontrast exam. 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 Osseous structures intact with osteopenia, mild/moderate degenerative changes throughout the thoracolumbar spine, and remote T12 superior endplate fracture with 25-50% height loss. No ventral or inguinal hernias. Impression: 1. Negative renal calculus or evidence for obstructive uropathy. Incidental left renal cyst. 2. Markedly enlarged/nodular prostate gland impressing on base of bladder. Urinary bladder base mass cannot be completely excluded. 3. Mild diffuse fecal stasis. 4. Chronic findings including arteriosclerotic disease with AAA pulmonary emphysema, bony fibrosis/scarring, chronic bony findings, and old granulomatous disease.
[2021-12-19 12:59] VITALS: BP 130/68; PULSE 67; O2SAT 99
== END 2021-12-19 12:58 | disposition home or self-care (01) ==
LOC: ED 09:50
DX: R10.31 Right lower quadrant pain (principal); I10 Essential (primary) hypertension; E78.5 Hyperlipidemia, unspecified; J44.9 Chronic obstructive pulmonary disease, unspecified; Z79.899 Other long term (current) drug therapy
CPT/HCPCS: 36000; 36415; 74176; 80053; 81015; 83690; 85025; 99283

== ENCOUNTER 2022-08-19 08:41 | Observation (INO) | payer MEDICARE ==
[2022-08-19] MEDS ORDERED: DUONEB 0.5-3 MG/3 ml Neb IH ONE ×2 (08:49→09:05)
[2022-08-19 09:03] LABS: A-aADO2 74; ABG HEMOGLOBIN 12.9; ABG POTASSIUM 3.6 (3.5-5.1); ABG SITE RIGHT RADIAL; ALLEN TEST OK? YES; ARTERIAL BLD GAS O2 SATURATION 96.7 % (95-100); ARTERIAL BLOOD GAS BASE EXCESS 6.1 (-2.0-2.0); ARTERIAL BLOOD GAS FIO2 32 %; ARTERIAL BLOOD GAS PCO2 59 mmHg (35-45); ARTERIAL BLOOD GAS PO2 80 mmHg (75-100); ARTERIAL BLOOD GAS pH 7.36 (7.35-7.45); CARBOXYHEMOGLOBIN 1.1 % THgb (0.0-6.9); HCO3- 33.3 (22-28); HGB O2 SAT 95.2 g/dF (94-100); Methhemoglobin 0.5 % (1.4-1.5); paO2 pAO1 0.52
--- NOTE | 2022-08-19 09:09 | XRAY ---
Indication: Dyspnea. COPD. Comparison: November 03, 2019 Portable chest again hyperinflated with minimal bibasilar subsegmental atelectasis/scarring, tiny calcified granulomas, and focal eventration right hemidiaphragm. Heart not enlarged. Bony thorax intact again with osteopenia, degenerative changes, old left rib fractures, marked deformity left shoulder, and small right humeral neck bony exostosis. Impression: Nonacute chest with chronic features.
--- NOTE | 2022-08-19 09:11 | ERPHSYRPT ---
- History of Present Illness Source: patient, other (Daughter) Exam Limitations: other (Poor historian) Patient Subjective Stated Complaint: PT HERE FOR INCREASE SOB FOR ABOUT 3 DAYS NOW. NO FEVER Triage Nursing Assessment: PT ARRIVED PER WC, RESP LABORED WITH MOVEMENT, PT ON O2 2 LNC, NO COUGH. Physician History: 86 yo WM who is 3L O2 depemdent at home presents w dyspnea x 2 weeks. Pt has a cough/coryza but denies chest pain/abdominal pain/f ever/nausea/vomiting/diarrhea/melana/hematochezia/dysuria/hematuria. He has a h/o HI/stents/COPD/HTN/hyperlipidemia/1ppd until 2014. Timing/Duration: other (2wks) Activities at Onset: rest Severity of Dyspnea-Max: severe Severity of Dyspnea-Current: moderate Possible Cause: occasional episodes Modifying Factors: Improves With: activity, coughing, oxygen Associated Symptoms: denies symptoms, cough Allergies/Adverse Reactions: No Known Drug Allergies Allergy (Verified 08/19/22 08:44) Home Medications: Albuterol Sulfate 2.5 mg IH Q6H 11/03/19 [History] Albuterol Sulfate [Ventolin Hfa] 2 puffs IH TID 11/03/19 [History] Alendronate Sodium 70 mg [Fosamax 70 MG] 70 mg PO WEEKLY 11/03/19 [History] Aspirin EC 81 mg [Ecotrin 81 mg] 81 mg PO DAILY 11/03/19 [History] Atenolol 50 mg [Tenormin 50 mg] 50 mg PO DAILY 11/03/19 [History] Brimonidine Tartrate [Alphagan P 0.15%] 1 drop OP DAILY 11/03/19 [History] Calcium Carbonate/Vitamin D3 [Calcium 500Mg-Vit D3 15Mcg Tab] 1 each PO DAILY 11/03/19 [History] Dorzolamide HCl/Pf [Dorzolamide 2% Eye Drop] 1 drop OP BID 11/03/19 [History] Fluticasone/Umeclidin/Vilanter [Trelegy Ellipta 100-62.5-25] 1 each IH DAILY 11/03/19 [History] Simvastatin 20Mg [Zocor 20Mg] 40 mg PO DAILY 11/03/19 [History] Cetirizine HCl [Zyrtec] 10 mg PO DAILY 08/19/22 [History] Clopidogrel Bisulfate [PLAVIX Tablet] 75 mg PO DAILY 08/19/22 [History] Fluticasone/Umeclidin/Vilanter [Trelegy Ellipta 100-62.5-25] 1 puff DAILY 08/19/22 [History] Furosemide 20 mg [Lasix 20 mg] 20 mg PO DAILY 08/19/22 [History] Lisinopril 10 mg [Zestril 10 MG] 10 mg PO DAILY 08/19/22 [History] Metoprolol Tartrate 25 mg [Lopressor 25MG Tab] 25 mg PO BID 08/19/22 [History] PARoxetine HCL [Paxil] 1 ea DAILY 08/19/22 [History] Prednisone 20 mg [Deltasone 20 mg] 20 mg PO DAILY 08/19/22 [History] Ropinirole HCl 1 mg PO DAILY 08/19/22 [History] Tamsulosin HCl 0.4 mg [Flomax 0.4 MG] 1 ea DAILY 08/19/22 [History] Trazodone HCl 50 mg [Desyrel 50 mg] 50 mg PO HS 08/19/22 [History] Hx Tetanus, Diphtheria Vaccination/Date Given: No Hx Influenza Vaccination/Date Given: Yes Hx Pneumococcal Vaccination/Date Given: Yes Immunizations Up to Date: Yes Travel Risk - International Travel Have you traveled outside of the country in past 3 weeks: No - Coronavirus Screening Are you exhibiting any of the following symptoms?: No Close contact with a COVID-19 positive Pt in past 14-21 Days: No - Vaccine Status Have you recieved a Covid-19 vaccination: Yes Psychic Reader: Unknown - Vaccination Dates Date of 2cond Vaccination (if applicable): 2020 Dates if Unknown: ? - Review of Systems Constitutional: No Symptoms, Fatigue, Malaise Eyes: No Symptoms Ears, Nose, & Throat: No Symptoms Respiratory: No Symptoms, Cough, Dyspnea, Dyspnea on Exertion (VAZQUEZ) Cardiac: No Symptoms Abdominal/Gastrointestinal: No Symptoms Genitourinary Symptoms: No Symptoms Musculoskeletal: No Symptoms Skin: No Symptoms Neurological: No Symptoms Psychological: No Symptoms Endocrine: No Symptoms Hematologic/Lymphatic: No Symptoms Immunological/Allergic: No Symptoms - Past Medical History Pertinent Past Medical History: Yes Neurological History: No Pertinent History ENT History: No Pertinent History Cardiac History: Coronary Artery Disease, High Cholesterol Respiratory History: COPD Endocrine Medical History: No Pertinent History Musculoskeletal History: No Pertinent History GI Medical History: No Pertinent History History: No Pertinent History Psycho-Social History: No Pertinent History Male Reproductive Disorders: Prostate Problems Other Medical History: pt poor historian. states hyperkalemia - Past Surgical History Past Surgical History: Yes Neuro Surgical History: No Pertinent History Cardiac: Cardiac Catheterization, Cardiac Stent Respiratory: No Pertinent History Gastrointestinal: Cholecystectomy Genitourinary: No Pertinent History Musculoskeletal: No Pertinent History Male Surgical History: No Pertinent History Other Surgical History: bladder scope - Social History Smoking Status: Former smoker How long have you smoked: 50 yr Exposure to second hand smoke: No Drug Use: none Patient Lives Alone: No - Nursing Vital Signs Nursing Vital Signs: Initial Vital Signs Respiratory Rate 26 H 08/19/22 08:43 O2 Sat by Pulse Oximetry 99 08/19/22 08:43 Pain Scale Pain Intensity 2 Tachy/Tachypneic/Borderline sats - Physical Exam General Appearance: mild distress, anxiety Eye Exam: PERRL/EOMI, eyes nml inspection Ears, Nose, Throat Exam: hearing grossly normal, normal ENT inspection, normal pharynx Neck Exam: normal inspection, non-tender, supple, full range of motion, No Brudzinski, No Kernig's, No meningismus, No carotid bruit Respiratory Exam: respiratory distress (Mild), prolonged expirations, wheezing (Markedly scattered wheezes B) Cardiovascular/Chest Exam: tachycardia, No murmur Abdominal/Gastrointestinal Exam: soft, normal bowel sounds, No tenderness Extremity Exam: non-tender, normal range of motion Peripheral Pulses Exam: carotid (R): 2+, carotid (L): 2+ Neurologic Exam: alert, oriented x 3, cooperative, team primary care physician II-XII nml as tested, normal mood/affect, sensation nml Skin Exam: normal color, warm Lymphatic Exam: No adenopathy SpO2 Interpretation: normal SpO2: 95 O2 Delivery: Nasal Cannula - Course EKG Interpreted by Me: RATE (NSR/Rate88/Normal QT-QTc/PVC's/No acute ST segment changes) - Radiology Exams Chest X-ray Interpretation: Reviewed by me, Discussed w/ radiologist (Chronic changes) - CT Exams Chest CT Interpretation: Discussed w/radiologist (COPD/T12 endplant fx, ? chronicity/Nothing acute) Ordered Tests: Active Orders 24 hr Category Date Time Status EKG-ER Only STAT Care 08/19/22 08:45 Completed IV Insertion STAT Care 08/19/22 08:45 Completed Heart-Healthy Diet Diet 08/19/22 Dinner Active CHEST 1 VIEW (PORTABLE) Stat Exams 08/19/22 08:44 Completed CHEST WITHOUT CONTRAST [CT] Stat Exams 08/19/22 10:34 Completed ARTERIAL BLOOD GASES Urgent Lab 08/19/22 08:55 Completed BLOOD CULTURE Stat Lab 08/19/22 12:15 Received CBC W DIFF Stat Lab 08/19/22 09:13 Completed CMP AM.LAB Lab 08/20/22 04:00 Ordered CMP Stat Lab 08/19/22 09:13 Completed D-DIMER QUANTITATIVE Stat Lab 08/19/22 09:48 Completed Lactic Acid Stat Lab 08/19/22 08:55 Completed MAGNESIUM Stat Lab 08/19/22 09:13 Completed NT PRO BNPII Stat Lab 08/19/22 09:13 Completed PROTIME WITH INR Stat Lab 08/19/22 09:13 Completed PTT Stat Lab 08/19/22 09:13 Completed TROPONIN Q4H Lab 08/19/22 09:13 Completed TROPONIN Q4H Lab 08/19/22 12:10 Completed TROPONIN Q4H Lab 08/19/22 16:45 Ordered UA W/RFX UR CULTURE Stat Lab 08/19/22 08:43 Ordered Transfer Order Routine Transfer 08/19/22 Completed Medication Summary Generic Name Dose Route Start Last Admin Trade Name Freq PRN Reason Stop Dose Admin Albuterol/Ipratropium 3 ml 08/19/22 15:00 Ipratropium/Albuterol Sulfate 3 Ml Ampul.Neb IH 09/18/22 14:59 Q4HRT MENDY Methylprednisolone Sodium 0 mg 08/19/22 18:00 Succinate 125 mg/ Sterile IV 09/18/22 17:59 Water 2 ml Q6HT MENDY Enoxaparin Sodium 40 mg 08/19/22 13:00 Enoxaparin Sodium 40 Mg/0.4 Ml Syringe SQ 09/18/22 12:59 DAILY MENDY Ceftriaxone Sodium/Dextrose 1 g in 50 mls @ 100 mls/hr 08/20/22 10:00 Rocephin 1 Gm-D5w 50 Ml Bag IV 08/23/22 09:59 Q24H10 MENDY Ondansetron HCl 4 mg 08/19/22 11:55 Ondansetron Hcl 4 Mg/2 Ml Vial IV 09/18/22 11:54 Q6H PRN PRN NAUSEA/VOMITING Pantoprazole Sodium 40 mg 08/19/22 13:00 Pantoprazole 40 Mg Vial IV 09/18/22 12:59 Q24H10 MENDY Discontinued Medications Generic Name Dose Route Start Last Admin Trade Name Freq PRN Reason Stop Dose Admin Albuterol/Ipratropium 3 ml 08/19/22 08:49 08/19/22 09:08 Ipratropium/Albuterol Sulfate 3 Ml Ampul.Neb IH 08/19/22 08:50 3 ml STAT ONE Administration Albuterol/Ipratropium Confirm 08/19/22 09:05 Ipratropium/Albuterol Sulfate 3 Ml Ampul.Neb Administered 08/19/22 09:06 Dose 3 ml IH .STK-MED ONE Methylprednisolone Sodium 0 mg 08/19/22 11:47 08/19/22 11:58 Succinate 125 mg/ Sterile IV 08/19/22 11:48 125 mg Water 2 ml STAT ONE Administration Ceftriaxone Sodium/Dextrose 1 g in 50 mls @ 100 mls/hr 08/19/22 11:53 08/19/22 12:07 Rocephin 1 Gm-D5w 50 Ml Bag IV 08/19/22 12:22 100 ml/hr STAT STA 100 mls/hr Administration Ceftriaxone Sodium/Dextrose Confirm 08/19/22 11:56 Rocephin 1 Gm-D5w 50 Ml Bag Administered 08/19/22 11:57 Dose 1 g in 50 mls @ ud IV .STK-MED ONE Methylprednisolone Sodium Succinate Confirm 08/19/22 11:56 Methylprednis Sod Succ 125 Mg/2 Ml Vial Administered 08/19/22 11:57 Dose 125 mg .ROUTE .STK-MED ONE Sterile Water Confirm 08/19/22 11:56 Water For Injection,Sterile 10 Ml Vial Administered 08/19/22 11:57 Dose 10 ml IJ .STK-MED ONE Lab/Rad Data: Laboratory Result Diagrams 08/19/22 09:13 08/19/22 09:13 Laboratory Results 08/19/22 08/19/22 08/19/22 Range/Units 12:10 09:48 09:13 WBC (4.0-10.5) x10^3/uL RBC (4.1-5.6) x10^6/uL Hgb (12.5-18.0) g/dL Hct (42-50) % MCV (78-100) fL MCH (26-32) pg MCHC (32-36) g/dL RDW (11.5-14.0) % Plt Count (150-450) x10^3/uL MPV (7.5-11.0) fL Gran % (36.0-66.0) % Immature Gran % (Auto) (0.00-0.4) % Nucleat RBC Rel Count (0.00-0.1) % Eos # (Auto) (0-0.5) x10^3/uL Immature Gran # (Auto) (0.00-0.03) x10^3u/L Absolute Lymphs (auto) (1.0-4.6) x10^3/uL Absolute Monos (auto) (0.0-1.3) x10^3/uL Absolute Nucleated RBC (0.00-0.01) x10^3u/L Lymphocytes % (24.0-44.0) % Monocytes % (0.0-12.0) % Eosinophils % (0.00-5.0) % Basophils % (0.0-0.4) % Absolute Granulocytes (1.4-6.9) x10^3/uL Basophils # (0-0.4) x10^3/uL PT (9.4-12.5) SECONDS INR (0.8-3.0) APTT (25.1-36.5) SECONDS D-Dimer 0.42 (0.0-0.50) mg/L Puncture Site pCO2 (35-45) mmHg pO2 (75-100) mmHg Base Excess (-2.0-2.0) O2 Saturation (94-100) g/dF ABG pH (7.35-7.45) ABG HCO3 (22-28) ABG O2 Sat (Measured) (95-100) % Pedro Test A-a Gradient a/A Ratio Hemoglobin Carboxyhemoglobin (0.0-6.9) % THgb Methemoglobin (1.4-1.5) % Potassium (3.5-5.1) Temperature C POC O2 Flow Rate % Sodium (137-145) mmol/L Chloride (98-107) mmol/L Carbon Dioxide (22-30) mmol/L Anion Gap (5-15) MEQ/L BUN (9-20) mg/dL Creatinine (0.66-1.25) mg/dL Estimated GFR ML/MIN Glucose (74-106) mg/dL Lactic Acid (0.4-2.0) Calcium (8.4-10.2) mg/dL Magnesium (1.6-2.3) mg/dL Total Bilirubin (0.2-1.3) mg/dL AST (17-59) U/L ALT (0-50) U/L Alkaline Phosphatase (38-126) U/L Troponin I 0.027 (0.000-0.034) ng/mL NT-Pro-B Natriuret Pep (<300) pg/mL Serum Total Protein (6.3-8.2) g/dL Albumin (3.5-5.0) g/dL Influenza Type A Ag NEGATIVE (NEGATIVE) Influenza Type B Ag NEGATIVE (NEGATIVE) RSV (PCR) NEGATIVE (NEGATIVE) SARS-CoV-2 (PCR) NEGATIVE (NEGATIVE) Slides for Path Review 08/19/22 08/19/22 08/19/22 Range/Units 09:13 09:13 09:13 WBC (4.0-10.5) x10^3/uL RBC (4.1-5.6) x10^6/uL Hgb (12.5-18.0) g/dL Hct (42-50) % MCV (78-100) fL MCH (26-32) pg MCHC (32-36) g/dL RDW (11.5-14.0) % Plt Count (150-450) x10^3/uL MPV (7.5-11.0) fL Gran % (36.0-66.0) % Immature Gran % (Auto) (0.00-0.4) % Nucleat RBC Rel Count (0.00-0.1) % Eos # (Auto) (0-0.5) x10^3/uL Immature Gran # (Auto) (0.00-0.03) x10^3u/L Absolute Lymphs (auto) (1.0-4.6) x10^3/uL Absolute Monos (auto) (0.0-1.3) x10^3/uL Absolute Nucleated RBC (0.00-0.01) x10^3u/L Lymphocytes % (24.0-44.0) % Monocytes % (0.0-12.0) % Eosinophils % (0.00-5.0) % Basophils % (0.0-0.4) % Absolute Granulocytes (1.4-6.9) x10^3/uL Basophils # (0-0.4) x10^3/uL PT 10.3 (9.4-12.5) SECONDS INR 0.94 (0.8-3.0) APTT 25.4 (25.1-36.5) SECONDS D-Dimer (0.0-0.50) mg/L Puncture Site pCO2 (35-45) mmHg pO2 (75-100) mmHg Base Excess (-2.0-2.0) O2 Saturation (94-100) g/dF ABG pH (7.35-7.45) ABG HCO3 (22-28) ABG O2 Sat (Measured) (95-100) % Pedro Test A-a Gradient a/A Ratio Hemoglobin Carboxyhemoglobin (0.0-6.9) % THgb Methemoglobin (1.4-1.5) % Potassium 3.9 (3.5-5.1) Temperature C POC O2 Flow Rate % Sodium 140 (137-145) mmol/L Chloride 99 (98-107) mmol/L Carbon Dioxide 36 H (22-30) mmol/L Anion Gap 8.6 (5-15) MEQ/L BUN 16 (9-20) mg/dL Creatinine 0.96 (0.66-1.25) mg/dL Estimated GFR > 60.0 ML/MIN Glucose 210 H (74-106) mg/dL Lactic Acid (0.4-2.0) Calcium 8.6 (8.4-10.2) mg/dL Magnesium 1.9 (1.6-2.3) mg/dL Total Bilirubin 0.50 (0.2-1.3) mg/dL AST 31 (17-59) U/L ALT 36 (0-50) U/L Alkaline Phosphatase 93 (38-126) U/L Troponin I 0.034 (0.000-0.034) ng/mL NT-Pro-B Natriuret Pep 337 (<300) pg/mL Serum Total Protein 6.0 L (6.3-8.2) g/dL Albumin 3.4 L (3.5-5.0) g/dL Influenza Type A Ag (NEGATIVE) Influenza Type B Ag (NEGATIVE) RSV (PCR) (NEGATIVE) SARS-CoV-2 (PCR) (NEGATIVE) Slides for Path Review 08/19/22 08/19/22 08/19/22 Range/Units 09:13 08:55 08:55 WBC 4.1 (4.0-10.5) x10^3/uL RBC 4.09 L (4.1-5.6) x10^6/uL Hgb 12.1 L (12.5-18.0) g/dL Hct 40.7 L (42-50) % MCV 99.5 (78-100) fL MCH 29.6 (26-32) pg MCHC 29.7 L (32-36) g/dL RDW 13.0 (11.5-14.0) % Plt Count 83 L (150-450) x10^3/uL MPV 12.9 H (7.5-11.0) fL Gran % 78.1 H (36.0-66.0) % Immature Gran % (Auto) 0.5 H (0.00-0.4) % Nucleat RBC Rel Count 0.0 (0.00-0.1) % Eos # (Auto) 0.09 (0-0.5) x10^3/uL Immature Gran # (Auto) 0.02 (0.00-0.03) x10^3u/L Absolute Lymphs (auto) 0.47 L (1.0-4.6) x10^3/uL Absolute Monos (auto) 0.30 (0.0-1.3) x10^3/uL Absolute Nucleated RBC 0.00 (0.00-0.01) x10^3u/L Lymphocytes % 11.4 L (24.0-44.0) % Monocytes % 7.3 (0.0-12.0) % Eosinophils % 2.2 (0.00-5.0) % Basophils % 0.5 (0.0-0.4) % Absolute Granulocytes 3.21 (1.4-6.9) x10^3/uL Basophils # 0.02 (0-0.4) x10^3/uL PT (9.4-12.5) SECONDS INR (0.8-3.0) APTT (25.1-36.5) SECONDS D-Dimer (0.0-0.50) mg/L Puncture Site RIGHT RADIAL pCO2 59 H (35-45) mmHg pO2 80 (75-100) mmHg Base Excess 6.1 H (-2.0-2.0) O2 Saturation 95.2 (94-100) g/dF ABG pH 7.36 (7.35-7.45) ABG HCO3 33.3 H* (22-28) ABG O2 Sat (Measured) 96.7 (95-100) % Pedro Test YES A-a Gradient 74 a/A Ratio 0.52 Hemoglobin 12.9 Carboxyhemoglobin 1.1 (0.0-6.9) % THgb Methemoglobin 0.5 L (1.4-1.5) % Potassium 3.6 (3.5-5.1) Temperature 37.0 C POC O2 Flow Rate 32 % Sodium (137-145) mmol/L Chloride (98-107) mmol/L Carbon Dioxide (22-30) mmol/L Anion Gap (5-15) MEQ/L BUN (9-20) mg/dL Creatinine (0.66-1.25) mg/dL Estimated GFR ML/MIN Glucose (74-106) mg/dL Lactic Acid 1.9 (0.4-2.0) Calcium (8.4-10.2) mg/dL Magnesium (1.6-2.3) mg/dL Total Bilirubin (0.2-1.3) mg/dL AST (17-59) U/L ALT (0-50) U/L Alkaline Phosphatase (38-126) U/L Troponin I (0.000-0.034) ng/mL NT-Pro-B Natriuret Pep (<300) pg/mL Serum Total Protein (6.3-8.2) g/dL Albumin (3.5-5.0) g/dL Influenza Type A Ag (NEGATIVE) Influenza Type B Ag (NEGATIVE) RSV (PCR) (NEGATIVE) SARS-CoV-2 (PCR) (NEGATIVE) Slides for Path Review YES - Progress Progress: improved Progress Note: 08/19/22 12:01 Nursing note and vital signs reviewed No food or housing insecurities noted All lab results reviewed and shared w pt Additional history per daughter Kenya silva mild improvement 125mg IV Solumedrol Admit per Dr. Leiva, wants to start antibiotics DNR per Pt Discussed with : Mikal Counseled pt/family regarding: lab results, diagnosis, need for follow-up, rad results Medical Desision Making - Independent Historian Additional History obtained from: Child - Discussion of managment Care discussed with:: PCP Reviewed:: Test results, Need for additional workup Agreed on:: Treatment plan, place in obs Will see patient: in ED - Diagnostic Testing Diagnostic test were ordered, analyzed, and reviewed by me: Yes Radiological Interpretation: Reviewed by me, Discussed w/ radiologist - Risk of complications The pt has a high risk of morbidity or mortality based on: Drug therapy requiring intensive monitoring for toxicity - Departure Departure Disposition: Observation Clinical Impression: COPD with acute exacerbation Condition: Stable Critical Care Time: Yes Critical Care Time(excluding separately billable procedures): Critical 30-74 mins
[2022-08-19 09:16] LABS: Absolute Neutrophil Ct (ANC) 3.21 x10^3/uL (1.4-6.9); BASOPHIL % 0.5 % (0.0-0.4); Basophil (Absolute #) 0.02 x10^3/uL (0-0.4); Eosinophil % 2.2 % (0.00-5.0); Eosinophil (Absolute #) 0.09 x10^3/uL (0-0.5); Hematocrit 40.7 % (42-50); Hemoglobin 12.1 g/dL (12.5-18.0); IMMATURE GRAN # 0.02 x10^3u/L (0.00-0.03); IMMATURE GRAN % 0.5 % (0.00-0.4); Lymphocyte (Absolute #) 0.47 x10^3/uL (1.0-4.6); Lymphocytes % 11.4 % (24.0-44.0); Mean Cell Volume 99.5 fL (78-100); Mean Corpuscular Hemoglobin 29.6 pg (26-32); Mean Corpuscular Hgb Concent. 29.7 g/dL (32-36); Mean Platelet Volume 12.9 fL (7.5-11.0); Monocytes % 7.3 % (0.0-12.0); Neutrophil % 78.1 % (36.0-66.0); Platelet Count 83 x10^3/uL (150-450); Red Blood Count 4.09 x10^6/uL (4.1-5.6); White Blood Count 4.1 x10^3/uL (4.0-10.5)
[2022-08-19 09:28] LABS: ALBUMIN 3.4 g/dL (3.5-5.0); ALKALINE PHOSPHATASE 93 U/L (38-126); ANION GAP 8.6 MEQ/L (5-15); BLOOD UREA NITROGEN 16 mg/dL (9-20); CHLORIDE 99 mmol/L (98-107); Calcium 8.6 mg/dL (8.4-10.2); Carbon Dioxide 36 mmol/L (22-30); Creatinine 1 0.96 mg/dL (0.66-1.25); EST GLOMERULAR FILTRATION RATE > 60.0 ML/MIN; Glucose 210 mg/dL (74-106); MAGNESIUM 1.9 mg/dL (1.6-2.3); Potassium 3.9 mmol/L (3.5-5.1); SGOT/AST 31 U/L (17-59); SGPT/ALT 36 U/L (0-50); SODIUM 140 mmol/L (137-145)
[2022-08-19 09:29] LABS: INR 0.94 (0.8-3.0); PROTIME 10.3 SECONDS (9.4-12.5); PTT 25.4 SECONDS (25.1-36.5)
[2022-08-19 09:49] LABS: INFLUENZA A NEGATIVE (NEGATIVE); INFLUENZA B NEGATIVE (NEGATIVE); RESPIRATORY SYNCTIAL VIRUS NEGATIVE (NEGATIVE); SARS-CoV-2 Xpert Express NEGATIVE (NEGATIVE)
[2022-08-19 09:55] LABS: TROPONIN 0.034 ng/mL (0.000-0.034)
[2022-08-19 10:27] LABS: Slide Review 1 YES
--- NOTE | 2022-08-19 11:38 | XRAY ---
Indication: Dyspnea. COPD. Multiple contiguous axial images obtained through the chest without contrast. Comparison: None Lungs demonstrates moderate diffuse pulmonary emphysema and mild bilateral mid to lower lung subsegmental atelectasis/scarring. A few tiny bilateral calcified granulomas, largest right lower lobe measuring 8mm. 4 mm left lower lobe noncalcified nodule probably granulomatous. No infiltrate, consolidation, or effusion. Heart not enlarged with scattered coronary calcifications including coronary stent. Aorta mildly arteriosclerotic without aneurysm. Small mediastinal and bilateral hilar calcified nodes. No pathologic mediastinal lymphadenopathy. Bony thorax demonstrates osteopenia, mild degenerative changes throughout visualized spine, T12 superior endplate fracture with 50% height loss of uncertain chronicity, old bilateral rib fractures, and markedly advanced left shoulder degenerative changes. Limited upper abdomen demonstrates 2.8 cm left upper pole renal cyst, tiny splenic calcified granulomas, and cholecystectomy. Impression: 1. Pulmonary emphysema, scattered subsegmental atelectasis/scarring, and old granulomatous disease. Findings reported on same-day chest radiograph. 2. T12 endplate fracture of uncertain chronicity. Osteopenia, multilevel degenerative spondylosis, old bilateral rib fractures, and markedly advanced left shoulder degenerative changes. 3. Incidental left renal cyst and scattered arteriosclerotic disease.
[2022-08-19] MEDS ORDERED: solu-MEDROL 125 MG, Sterile H2O 10 ml 2 ML IV ONE ×2 (11:47)
[2022-08-19] MEDS ORDERED: ROCEPHIN 1 Gm-D5w 50 ml Bag** 1 G/50 ML IVPB IV STA (11:53)
[2022-08-19] MEDS ORDERED: Zofran 4 MG/2 ML VIAL IV PRN (11:55)
[2022-08-19] MEDS ORDERED: ROCEPHIN 1 Gm-D5w 50 ml Bag** 1 G/50 ML IVPB IV ONE (11:56)
[2022-08-19] MEDS ORDERED: solu-MEDROL ONE (11:56)
[2022-08-19] MEDS ORDERED: Sterile H2O 10 ml IJ ONE (11:56)
[2022-08-19] MEDS: PROVENTIL 2.5 MG/3 ML NEB IH SCH ×2 (14:14→19:42)
[2022-08-19] MEDS ORDERED: DUONEB 0.5-3 MG/3 ml Neb IH SCH (15:00)
[2022-08-19] MEDS: ENOXAPARIN SODIUM SQ SCH (16:09)
[2022-08-19] MEDS: PROTONIX 40 MG IV IV SCH (16:09)
[2022-08-19 16:51] LABS: Appearance Clear (Clear); Bacteria None Seen /HPF (None Seen); Bilirubin Negative (Negative); Blood Negative (Negative); Epithelial Cells None Seen /HPF (None Seen); Glucose, Urine >=1000 mg/dL (Negative); Hyaline Casts NONE SEEN /LPF (0-2); Ketones Negative (Negative); Leukocyte Esterase Trace (Negative); Nitrite Negative (Negative); Ph 6.5 (4.6-8.0); Protein,Urine Dip Negative (Negative); RBC 0-2 /HPF (0-5); Specific Gravity 1.025 (1.005-1.030); Urobilinogen 0.2 mg/dL (0.2)
[2022-08-19 16:55] LABS: ADD URINE CULTURE? NO (NO)
[2022-08-19] MEDS: solu-MEDROL 125 MG, Sterile H2O 10 ml 2 ML IV SCH ×4 (18:01→23:58)
[2022-08-20] MEDS: solu-MEDROL 125 MG, Sterile H2O 10 ml 2 ML IV SCH ×8 (05:27→23:47)
[2022-08-20 06:06] LABS: ALBUMIN 3.5 g/dL (3.5-5.0); ALKALINE PHOSPHATASE 96 U/L (38-126); ANION GAP 5.4 MEQ/L (5-15); BLOOD UREA NITROGEN 16 mg/dL (9-20); CHLORIDE 100 mmol/L (98-107); Calcium 8.3 mg/dL (8.4-10.2); Carbon Dioxide 36 mmol/L (22-30); Creatinine 1 0.76 mg/dL (0.66-1.25); EST GLOMERULAR FILTRATION RATE > 60.0 ML/MIN; Glucose 176 mg/dL (74-106); Potassium 4.4 mmol/L (3.5-5.1); SGOT/AST 24 U/L (17-59); SGPT/ALT 34 U/L (0-50); SODIUM 137 mmol/L (137-145); Total Protein 6.2 g/dL (6.3-8.2)
[2022-08-20] MEDS: PROVENTIL 2.5 MG/3 ML NEB IH SCH ×4 (06:38→18:14)
[2022-08-20] MEDS: PATIENT OWN MEDICATION IH SCH (06:40)
[2022-08-20] MEDS ORDERED: Fosamax 70 MG PO PRN (07:15)
[2022-08-20] MEDS ORDERED: MEDICATION INTERVENTION MC SCH (07:45)
[2022-08-20] MEDS ORDERED: NON-FORMULARY ITEM (Paroxetine Hcl [Paxil] 10 MG Tablet) PO SCH (10:00)
[2022-08-20] MEDS ORDERED: NON-FORMULARY ITEM (Dorzolamide Hcl/Pf [Dorzolamide 2% Eye Drop] 10 ML Drops) OP SCH (10:00)
[2022-08-20] MEDS ORDERED: DELTASONE 20 MG PO SCH (10:00)
[2022-08-20] MEDS ORDERED: NON-FORMULARY ITEM (Multivitamin [Multivitamin] 1 EACH Tablet) PO SCH (10:00)
[2022-08-20] MEDS: ENOXAPARIN SODIUM SQ SCH (10:03)
[2022-08-20] MEDS: ROCEPHIN 1 Gm-D5w 50 ml Bag** 1 G/50 ML IVPB IV SCH (10:05)
[2022-08-20] MEDS: Paxil 20 MG PO SCH (10:05)
[2022-08-20] MEDS: PLAVIX Tablet PO SCH (10:05)
[2022-08-20] MEDS: THERAGRAN MULTIVITAMIN PO SCH (10:05)
[2022-08-20] MEDS: Zestril 10 MG PO SCH (10:05)
[2022-08-20] MEDS: ECOTRIN 81 MG PO SCH (10:05)
[2022-08-20] MEDS: Calcium 500MG W/Vit D Tablet PO SCH ×2 (10:05→22:29)
[2022-08-20] MEDS: PROTONIX 40 MG IV IV SCH (10:06)
[2022-08-20] MEDS: LASIX 20 MG PO SCH (10:06)
[2022-08-20] MEDS: Flomax 0.4 MG PO SCH (10:06)
[2022-08-20] MEDS: Lopressor 25MG Tab PO SCH ×2 (10:06→22:30)
[2022-08-20] MEDS: Alphagan P 0.15% OP SCH ×3 (10:18→22:27)
[2022-08-20] MEDS ORDERED: LIPITOR 40MG PO SCH (22:00)
[2022-08-20] MEDS ORDERED: NON-FORMULARY ITEM (Cetirizine Hcl [Zyrtec] 10 MG Capsule) PO SCH (22:00)
[2022-08-20] MEDS ORDERED: NON-FORMULARY ITEM (Ropinirole Hcl [Ropinirole Hcl] 1 MG Tablet) PO SCH (22:00)
[2022-08-20] MEDS: ZOCOR 20MG PO SCH (22:29)
[2022-08-20] MEDS: CLARITIN 10 MG PO SCH (22:30)
[2022-08-20] MEDS: DESYREL 50 MG PO SCH (22:30)
[2022-08-20] MEDS: Requip 0.5 MG PO SCH (22:30)
--- NOTE | 2022-08-20 23:29 | PCM.HP ---
History of Present Illness - Chief Complaint Chief Complaint: shortness of breath for 1=2 days History of Present Illness: is a 86 year old male.presents w dyspnea x 2 weeks. Pt has a cough/coryza but denies chest pain/abdominal pain/fever/nausea/vomiting/diarrhea/melana/hematochezia/dysuria/hematuria. He has a h/o [place]/stents/COPD/HTN/hyperlipidemia/1ppd until 2014. Timing/Duration: other (2wks) Activities at Onset: rest Severity of Dyspnea-Max: severe Severity of Dyspnea-Current: moderate Possible Cause: occasional episodes Modifying Factors: Improves With: activity, coughing, oxygen Associated Symptoms: denies symptoms, cough - Review of Systems Constitutional: Fatigue, Weakness, No Fever, No Chills Eyes: No Symptoms Ears, Nose, & Throat: No Symptoms Respiratory: Cough, Orthopnea, Short Of Breath, Wheezing Cardiac: Orthopnea, PND, No Chest Pain, No Edema, No Syncope Abdominal/Gastrointestinal: No Abdominal Pain, No Nausea, No Vomiting, No Diarrhea Genitourinary Symptoms: No Dysuria Musculoskeletal: No Back Pain, No Neck Pain Skin: No Rash Neurological: No Dizziness, No Focal Weakness, No Sensory Changes Psychological: No Symptoms Endocrine: No Symptoms Hematologic/Lymphatic: No Symptoms Immunological/Allergic: No Symptoms Medications & Allergies Home Medications: Home Medication List Albuterol Sulfate 2.5 mg IH Q6H 11/03/19 [History Confirmed 08/19/22] Alendronate Sodium 70 mg [Fosamax 70 MG] 70 mg PO WEEKLY 11/03/19 [History Confirmed 08/19/22] Aspirin EC 81 mg [Ecotrin 81 mg] 81 mg PO DAILY 11/03/19 [History Confirmed 08/19/22] Brimonidine Tartrate [Alphagan P 0.15%] 1 drop OP TID 11/03/19 [History Confirmed 08/19/22] Dorzolamide HCl/Pf [Dorzolamide 2% Eye Drop] 1 drop OP BID 11/03/19 [History Confirmed 08/19/22] Atorvastatin Calcium 40 mg PO QHS 08/19/22 [History Confirmed 08/19/22] Calcium Carbonate/Vitamin D3 [Oysco 500-Vit D3 200 Tablet] 1 each PO BID 08/19/22 [History Confirmed 08/19/22] Cetirizine HCl [Zyrtec] 10 mg PO QHS 08/19/22 [History Confirmed 08/19/22] Clopidogrel Bisulfate [PLAVIX Tablet] 75 mg PO DAILY 08/19/22 [History Confirmed 08/19/22] Fluticasone/Umeclidin/Vilanter [Trelegy Ellipta 200-62.5-25] 1 puff IH DAILY 08/19/22 [History Confirmed 08/19/22] Furosemide 20 mg [Lasix 20 mg] 20 mg PO DAILY 08/19/22 [History Confirmed 08/19/22] Lisinopril 10 mg [Zestril 10 MG] 10 mg PO DAILY 08/19/22 [History Confirmed 08/19/22] Metoprolol Tartrate 25 mg [Lopressor 25MG Tab] 25 mg PO BID 08/19/22 [History Confirmed 08/19/22] Multivitamin 1 each PO DAILY 08/19/22 [History Confirmed 08/19/22] PARoxetine HCL [Paxil] 10 mg PO DAILY 08/19/22 [History Confirmed 08/19/22] Prednisone 20 mg [Deltasone 20 mg] 20 mg PO DAILY 08/19/22 [History Confirmed 08/19/22] Ropinirole HCl 1 mg PO QHS 08/19/22 [History Confirmed 08/19/22] Tamsulosin HCl 0.4 mg [Flomax 0.4 MG] 0.4 mg PO DAILY 08/19/22 [History Confirmed 08/19/22] Trazodone HCl 50 mg [Desyrel 50 mg] 50 mg PO HS 08/19/22 [History Confirmed 08/19/22] Allergies/Adverse Reactions: Allergies Allergy/AdvReac Type Severity Reaction Status Date / Time No Known Drug Allergies Allergy Verified 08/19/22 08:44 - Past Medical History Past Medical History: Yes Neurological History: No Pertinent History ENT History: No Pertinent History Cardiac History: Coronary Artery Disease, High Cholesterol Respiratory History: COPD Endocrine Medical History: No Pertinent History Musculoskelatal History: No Pertinent History GI Medical History: No Pertinent History History: No Pertinent History Pyscho-Social History: No Pertinent History Male Reproductive Disorders: Prostate Problems Comment: pt poor historian. states hyperkalemia - Past Surgical History Past Surgical History: Yes Neuro Surgical History: No Pertinent History Cardiac History: Cardiac Catheterization, Cardiac Stent Respiratory Surgery: No Pertinent History GI Surgical History: Cholecystectomy Genitourinary Surgical Hx: No Pertinent History Musculskeletal Surgical Hx: No Pertinent History Male Surgical History: No Pertinent History Other Surgical History: bladder scope - Social History Smoking Status: Former smoker How long have you smoked: 50 yr Exposure to second hand smoke: No Alcohol: None Drug Use: none - Physical Exam Vital Signs: Vital Signs - 24 hr Temp Pulse Resp BP Pulse Ox 08/20/22 20:00 98.1 F 104 H 21 118/54 91 L 08/20/22 18:15 68 16 98 08/20/22 16:00 98.4 F 97 H 22 130/60 92 L 08/20/22 14:51 99 H 20 94 L 08/20/22 11:58 99.5 F 94 H 22 156/67 96 08/20/22 10:46 82 24 94 L 08/20/22 08:00 98.7 F 113 H 20 149/70 92 L 08/20/22 06:41 93 H 20 91 L 08/20/22 04:00 97.4 F 74 24 143/62 95 08/20/22 00:00 97.8 F 82 20 135/65 93 L General Appearance: mild distress, alert Neurologic Exam: alert, oriented x 3, cooperative, normal mood/affect, nml cerebellar function, nml station & gait, sensation nml, No motor deficits Eye Exam: PERRL/EOMI, eyes nml inspection Ears, Nose, Throat Exam: normal ENT inspection, TMs normal, pharynx normal, moist mucous membranes Neck Exam: normal inspection, non-tender, supple, full range of motion Respiratory Exam: respiratory distress, diminished breath sounds, accessory muscle use, crackles/rales, rhonchi, wheezing Cardiovascular Exam: regular rate/rhythm, normal heart sounds, normal peripheral pulses Gastrointestinal/Abdomen Exam: soft, normal bowel sounds, No tenderness, No mass Back Exam: normal inspection, normal range of motion, No CVA tenderness, No vertebral tenderness Extremity Exam: normal inspection, normal range of motion, pelvis stable Skin Exam: normal color, warm, dry, No rash Lymphatic Exam: No adenopathy Results - Labs Lab/Micro Results: Lab Results-Last 24 Hours 08/20/22 Range/Units 05:30 Sodium 137 (137-145) mmol/L Potassium 4.4 (3.5-5.1) mmol/L Chloride 100 (98-107) mmol/L Carbon Dioxide 36 H (22-30) mmol/L Anion Gap 5.4 (5-15) MEQ/L BUN 16 (9-20) mg/dL Creatinine 0.76 (0.66-1.25) mg/dL Estimated GFR > 60.0 ML/MIN Glucose 176 H (74-106) mg/dL Calcium 8.3 L (8.4-10.2) mg/dL Total Bilirubin 0.30 (0.2-1.3) mg/dL AST 24 (17-59) U/L ALT 34 (0-50) U/L Alkaline Phosphatase 96 (38-126) U/L Serum Total Protein 6.2 L (6.3-8.2) g/dL Albumin 3.5 (3.5-5.0) g/dL - Radiology Impressions Radiology Exams & Impressions: Radiology Procedures Category Date Time Status CHEST 1 VIEW (PORTABLE) Stat Exams 08/19/22 08:44 Completed CHEST WITHOUT CONTRAST [CT] Stat Exams 08/19/22 10:34 Completed - Other Procedures and Tests Respiratory Therapy 08/20/22 07:00 Respiratory MDI UD Assessment/Plan (1) COPD with acute exacerbation Current Visit: Yes Status: Acute Assessment & Plan: Chief Complaint Diagnosis exacerbation COPD Allergies Allergy/AdvReac Type Severity Reaction Status Date / Time No Known Drug Allergies Allergy Verified 08/19/22 08:44 Vital Signs (Last 24 hours) Temp Pulse Resp BP Pulse Ox 08/20/22 20:00 98.1 F 104 H 21 118/54 91 L 08/20/22 18:15 68 16 98 08/20/22 16:00 98.4 F 97 H 22 130/60 92 L 08/20/22 14:51 99 H 20 94 L 08/20/22 11:58 99.5 F 94 H 22 156/67 96 08/20/22 10:46 82 24 94 L 08/20/22 08:00 98.7 F 113 H 20 149/70 92 L 08/20/22 06:41 93 H 20 91 L 08/20/22 04:00 97.4 F 74 24 143/62 95 08/20/22 00:00 97.8 F 82 20 135/65 93 L Home Medications Medication Instructions Recorded Confirmed Last Taken Type Atorvastatin Calcium 40 mg PO QHS 08/19/22 08/19/22 Unknown History Calcium Carbonate/Vitamin D3 1 each PO BID 08/19/22 08/19/22 Unknown History [Oysco 500-Vit D3 200 Tablet] Cetirizine HCl [Zyrtec] 10 mg PO QHS 08/19/22 08/19/22 Unknown History Clopidogrel Bisulfate [PLAVIX 75 mg PO DAILY 08/19/22 08/19/22 Unknown History Tablet] Fluticasone/Umeclidin/Vilanter 1 puff IH DAILY 08/19/22 08/19/22 Unknown History [Myra Ellipta 200-62.5-25] Furosemide 20 mg [Lasix 20 20 mg PO DAILY 08/19/22 08/19/22 Unknown History mg] Lisinopril 10 mg [Zestril 10 10 mg PO DAILY 08/19/22 08/19/22 Unknown History MG] Metoprolol Tartrate 25 mg 25 mg PO BID 08/19/22 08/19/22 Unknown History [Lopressor 25MG Tab] Multivitamin 1 each PO DAILY 08/19/22 08/19/22 Unknown History PARoxetine HCL [Paxil] 10 mg PO DAILY 08/19/22 08/19/22 Unknown History Prednisone 20 mg [Deltasone 20 20 mg PO DAILY 08/19/22 08/19/22 Unknown History mg] Ropinirole HCl 1 mg PO QHS 08/19/22 08/19/22 Unknown History Tamsulosin HCl 0.4 mg [Flomax 0.4 mg PO DAILY 08/19/22 08/19/22 Unknown History 0.4 MG] Trazodone HCl 50 mg [Desyrel 50 50 mg PO HS 08/19/22 08/19/22 Unknown History mg] Current Medications Generic Name Dose Route Start Last Admin Trade Name Freq PRN Reason Stop Dose Admin Albuterol Sulfate 2.5 mg 08/19/22 15:00 08/20/22 18:14 Albuterol Sulfate 2.5 Mg/3 Ml Neb IH 09/18/22 14:59 2.5 mg QIDRT MENDY Administration Alendronate Sodium 70 mg 08/20/22 07:15 Alendronate Sodium 70 Mg Tablet PO 09/19/22 07:14 WEEKLY PRN Aspirin 81 mg 08/20/22 10:00 08/20/22 10:05 Aspirin 81 Mg Tablet.Ec PO 09/19/22 09:59 81 mg DAILY MENDY Administration Brimonidine Tartrate 0 ml 08/20/22 10:00 08/20/22 22:27 Brimonidine Tartrate 5 Ml Bottle Eye Drops OP 09/19/22 09:59 0.1 ml TID MENDY Administration Calcium Carbonate 1 tab 08/20/22 10:00 08/20/22 22:29 Calcium Carbonate 500 Mg/Vitamin D 1 Tab Tablet PO 09/19/22 09:59 1 tab BID MENDY Administration Clopidogrel Bisulfate 75 mg 08/20/22 10:00 08/20/22 10:05 Clopidogrel Bisulfate 75 Mg Tablet PO 09/19/22 09:59 75 mg DAILY MENDY Administration Methylprednisolone Sodium 0 mg 08/19/22 18:00 08/20/22 18:56 Succinate 125 mg/ Sterile IV 09/18/22 17:59 125 mg Water 2 ml Q6HT MENDY Administration Enoxaparin Sodium 40 mg 08/19/22 13:00 08/20/22 10:03 Enoxaparin Sodium 40 Mg/0.4 Ml Syringe SQ 09/18/22 12:59 40 mg DAILY MENDY Administration Furosemide 20 mg 08/20/22 10:00 08/20/22 10:06 Furosemide 20 Mg Tablet PO 09/19/22 09:59 20 mg DAILY MENDY Administration Ceftriaxone Sodium/Dextrose 1 g in 50 mls @ 100 mls/hr 08/20/22 10:00 08/20/22 10:05 Rocephin 1 Gm-D5w 50 Ml Bag IV 08/23/22 09:59 100 mls/hr Q24H10 MENDY Administration Lisinopril 10 mg 08/20/22 10:00 08/20/22 10:05 Lisinopril 10 Mg Tablet PO 09/19/22 09:59 10 mg DAILY MENDY Administration Loratadine 10 mg 08/20/22 22:00 08/20/22 22:30 Loratadine 10 Mg Tablet PO 09/19/22 21:59 10 mg QHS MENDY Administration Metoprolol Tartrate 25 mg 08/20/22 10:00 08/20/22 22:30 Metoprolol Tartrate 25 Mg Tab PO 09/19/22 09:59 25 mg BID MENDY Administration Miscellaneous Information 1 each 08/20/22 07:45 Medication Intervention 1 Each Each 09/19/22 07:44 .RN TO CHECK MENDY Multivitamins Therapeutic 1 tab 08/20/22 10:00 08/20/22 10:05 Multivitamins,Therapeutic 1 Tab Tab PO 09/19/22 09:59 1 tab DAILY MENDY Administration Ondansetron HCl 4 mg 08/19/22 11:55 Ondansetron Hcl 4 Mg/2 Ml Vial IV 09/18/22 11:54 Q6H PRN PRN NAUSEA/VOMITING Pantoprazole Sodium 40 mg 08/19/22 13:00 08/20/22 10:06 Pantoprazole 40 Mg Vial IV 09/18/22 12:59 40 mg Q24H10 MENDY Administration Paroxetine HCl 10 mg 08/20/22 10:00 08/20/22 10:05 Paroxetine Hcl 20 Mg Tablet PO 09/19/22 09:59 10 mg DAILY MENDY Administration Trelegy Ellipta 1 each 08/20/22 07:00 08/20/22 06:40 Inhaler IH 09/19/22 06:59 1 each 0700 MENDY Administration Prednisone 20 mg 08/20/22 10:00 08/20/22 10:05 Prednisone 20 Mg Tablet PO 09/19/22 09:59 20 mg DAILY MENDY Administration Ropinirole HCl 1 mg 08/20/22 22:00 08/20/22 22:30 Ropinirole Hcl 0.5 Mg Tablet PO 09/19/22 21:59 1 mg QHS MENDY Administration Simvastatin 40 mg 08/20/22 22:00 08/20/22 22:29 Simvastatin 20 Mg Tablet PO 09/19/22 21:59 40 mg QHS MENDY Administration Tamsulosin HCl 0.4 mg 08/20/22 10:00 08/20/22 10:06 Tamsulosin Hcl 0.4 Mg Cap PO 09/19/22 09:59 0.4 mg DAILY MENDY Administration Trazodone HCl 50 mg 08/20/22 22:00 08/20/22 22:30 Trazodone Hcl 50 Mg Tablet PO 09/19/22 21:59 50 mg HS MENDY Administration Discontinued Medications Generic Name Dose Route Start Last Admin Trade Name Rosalva PRN Reason Stop Dose Admin Albuterol/Ipratropium 3 ml 08/19/22 08:49 08/19/22 09:08 Ipratropium/Albuterol Sulfate 3 Ml Ampul.[facility] 08/19/22 08:50 3 ml STAT ONE Administration Albuterol/Ipratropium Confirm 08/19/22 09:05 Ipratropium/Albuterol Sulfate 3 Ml Ampul.Neb Administered 08/19/22 09:06 Dose 3 ml IH .STK-MED ONE Albuterol/Ipratropium 3 ml 08/19/22 15:00 Ipratropium/Albuterol Sulfate 3 Ml Ampul.[facility] 09/18/22 14:59 Q4HRT [facility] Methylprednisolone Sodium 0 mg 08/19/22 11:47 08/19/22 11:58 Succinate 125 mg/ Sterile IV 08/19/22 11:48 125 mg Water 2 ml STAT ONE Administration Ceftriaxone Sodium/Dextrose 1 g in 50 mls @ 100 mls/hr 08/19/22 11:53 08/19/22 12:07 Rocephin 1 Gm-D5w 50 Ml Bag IV 08/19/22 12:22 100 ml/hr STAT STA 100 mls/hr Administration Ceftriaxone Sodium/Dextrose Confirm 08/19/22 11:56 Rocephin 1 Gm-D5w 50 Ml Bag Administered 08/19/22 11:57 Dose 1 g in 50 mls @ ud IV .STK-MED ONE Methylprednisolone Sodium Succinate Confirm 08/19/22 11:56 Methylprednis Sod Succ 125 Mg/2 Ml Vial Administered 08/19/22 11:57 Dose 125 mg .ROUTE .STK-MED ONE Sterile Water Confirm 08/19/22 11:56 Water For Injection,Sterile 10 Ml Vial Administered 08/19/22 11:57 Dose 10 ml IJ .STK-MED ONE Intake & Output (Last 24 hours) 08/18/22 08/19/22 08/20/22 08/21/22 11:59 11:59 11:59 11:59 Intake Total 2080 640 Output Total 1900 Balance 180 640 Weight 94.4 kg 92.8 kg Laboratory Results (Last 24 hours) 08/20/22 05:30 Sodium 137 Potassium 4.4 Chloride 100 Carbon Dioxide 36 H Anion Gap 5.4 BUN 16 Creatinine 0.76 Estimated GFR > 60.0 Glucose 176 H Calcium 8.3 L Total Bilirubin 0.30 AST 24 ALT 34 Alkaline Phosphatase 96 Serum Total Protein 6.2 L Albumin 3.5 Orders (Last 24 hours) Category Date Time Status CMP AM.LAB Lab 08/20/22 05:30 Completed Alendronate Sodium 70 mg [Fosamax 70 MG] Med 08/20/22 07:15 Active 70 mg PO WEEKLY PRN Aspirin EC 81 mg [Ecotrin 81 mg] Med 08/20/22 10:00 Active 81 mg PO DAILY Brimonidine Tartrate [Alphagan P 0.15%] Med 08/20/22 10:00 Active 0 ml OP TID Calcium Carb/Vitamin D 500 mg* [Calcium 500MG W/Vit D Med 08/20/22 10:00 Active Tablet] 1 tab PO BID Ceftriaxone 1 GM/50 ML PREMIX* [ROCEPHIN 1 Gm-D5w 50 ml Med 08/20/22 10:00 Active Bag] 1 g in 50 ml IV Q24H10 Clopidogrel Bisulfate [PLAVIX Tablet] Med 08/20/22 10:00 Active 75 mg PO DAILY Furosemide 20 mg [Lasix 20 mg] Med 08/20/22 10:00 Active 20 mg PO DAILY Lisinopril 10 mg [Zestril 10 MG] Med 08/20/22 10:00 Active 10 mg PO DAILY Loratadine 10 mg [Claritin 10 mg] Med 08/20/22 22:00 Active 10 mg PO QHS Medication Intervention Med 08/20/22 07:45 Active 1 each MC .RN TO CHECK Metoprolol Tartrate 25 mg [Lopressor 25MG Tab] Med 08/20/22 10:00 Active 25 mg PO BID Multivitamins,Therapeutic Tab* [Theragran Multivitamin* Med 08/20/22 10:00 Active ] 1 tab PO DAILY Paroxetine HCl 20 mg [Paxil 20 MG] Med 08/20/22 10:00 Active 10 mg PO DAILY Patient Own Med [Patient Own Medication] Med 08/20/22 07:00 Active 1 each IH 0700 Prednisone 20 mg [Deltasone 20 mg] Med 08/20/22 10:00 Active 20 mg PO DAILY Ropinirole HCl 0.5 mg [Requip 0.5 MG] Med 08/20/22 22:00 Active 1 mg PO QHS Simvastatin 20Mg [Zocor 20Mg] Med 08/20/22 22:00 Active 40 mg PO QHS Tamsulosin HCl 0.4 mg [Flomax 0.4 MG] Med 08/20/22 10:00 Active 0.4 mg PO DAILY Trazodone HCl 50 mg [Desyrel 50 mg] Med 08/20/22 22:00 Active 50 mg PO HS Respiratory MDI UD RT 08/20/22 07:00 Active Code(s): J44.1 - CHRONIC OBSTRUCTIVE PULMONARY DISEASE W (ACUTE) EXACERBATION
[2022-08-21] MEDS ORDERED: Sterile H2O 10 ml IJ ONE (05:40)
[2022-08-21] MEDS: solu-MEDROL 125 MG, Sterile H2O 10 ml 2 ML IV SCH ×2 (05:41)
[2022-08-21] MEDS: PROVENTIL 2.5 MG/3 ML NEB IH SCH ×4 (07:44→18:34)
[2022-08-21] MEDS: PATIENT OWN MEDICATION IH SCH (07:47)
[2022-08-21] MEDS: ECOTRIN 81 MG PO SCH (10:16)
[2022-08-21] MEDS: DELTASONE 20 MG PO SCH (10:16)
[2022-08-21] MEDS: Lopressor 25MG Tab PO SCH ×2 (10:16→21:35)
[2022-08-21] MEDS: Calcium 500MG W/Vit D Tablet PO SCH ×2 (10:16→21:35)
[2022-08-21] MEDS: Paxil 20 MG PO SCH (10:16)
[2022-08-21] MEDS: Zestril 10 MG PO SCH (10:16)
[2022-08-21] MEDS: THERAGRAN MULTIVITAMIN PO SCH (10:16)
[2022-08-21] MEDS: Flomax 0.4 MG PO SCH (10:17)
[2022-08-21] MEDS: PROTONIX 40 MG IV IV SCH (10:17)
[2022-08-21] MEDS: PLAVIX Tablet PO SCH (10:17)
[2022-08-21] MEDS: LASIX 20 MG PO SCH (10:17)
[2022-08-21] MEDS: Alphagan P 0.15% OP SCH ×3 (10:27→21:36)
[2022-08-21] MEDS: ROCEPHIN 1 Gm-D5w 50 ml Bag** 1 G/50 ML IVPB IV SCH (10:28)
[2022-08-21] MEDS: ENOXAPARIN SODIUM SQ SCH (10:28)
[2022-08-21] MEDS: Zithromax 500 MG/ 250 ML NaCl Premix 500 MG/250 ML IVPB IV SCH (10:58)
[2022-08-21] MEDS: CLARITIN 10 MG PO SCH (21:35)
[2022-08-21] MEDS: DESYREL 50 MG PO SCH (21:35)
[2022-08-21] MEDS: Requip 0.5 MG PO SCH (21:35)
[2022-08-21] MEDS: ZOCOR 20MG PO SCH (21:35)
[2022-08-22] MEDS ORDERED: Fosamax 70 MG PO PRN (06:00)
[2022-08-22] MEDS: PROVENTIL 2.5 MG/3 ML NEB IH SCH ×3 (06:57→15:20)
[2022-08-22] MEDS: PATIENT OWN MEDICATION IH SCH (07:07)
[2022-08-22] MEDS: ECOTRIN 81 MG PO SCH (09:17)
[2022-08-22] MEDS: Calcium 500MG W/Vit D Tablet PO SCH (09:18)
[2022-08-22] MEDS: LASIX 20 MG PO SCH (09:18)
[2022-08-22] MEDS: Zestril 10 MG PO SCH (09:18)
[2022-08-22] MEDS: Paxil 20 MG PO SCH (09:18)
[2022-08-22] MEDS: Lopressor 25MG Tab PO SCH (09:18)
[2022-08-22] MEDS: PLAVIX Tablet PO SCH (09:18)
[2022-08-22] MEDS: THERAGRAN MULTIVITAMIN PO SCH (09:18)
[2022-08-22] MEDS: Flomax 0.4 MG PO SCH (09:19)
[2022-08-22] MEDS: PROTONIX 40 MG IV IV SCH (09:19)
[2022-08-22] MEDS: Zithromax 500 MG/ 250 ML NaCl Premix 500 MG/250 ML IVPB IV SCH (09:21)
[2022-08-22] MEDS: ENOXAPARIN SODIUM SQ SCH (09:25)
[2022-08-22] MEDS: DELTASONE 20 MG PO SCH (09:27)
[2022-08-22] MEDS: ROCEPHIN 1 Gm-D5w 50 ml Bag** 1 G/50 ML IVPB IV SCH (10:37)
[2022-08-22 11:46] VITALS: BP 132/62
[2022-08-22] MEDS: Alphagan P 0.15% OP SCH (11:56)
--- NOTE | 2022-08-22 14:55 | PCM.DS ---
Discharge Summary Date of Admission: 08/19/22 12:20 Date of Discharge: 08/22/22 Admitting Physician: JAMES STEVENS Primary Care Provider: JAMES STEVENS Allergies Allergies No Known Drug Allergies Allergy (Verified 08/19/22 08:44) Hospital Summary - Vitals & Intake/Output Vital Signs: Vital Signs Temperature 97.8 F 08/22/22 11:46 Pulse Rate 74 08/22/22 11:46 Respiratory Rate 16 08/22/22 11:46 Blood Pressure 132/62 08/22/22 11:46 O2 Sat by Pulse Oximetry 94 L 08/22/22 11:46 Intake & Output: Intake & Output 08/20/22 08/21/22 08/22/22 08/23/22 11:59 11:59 11:59 11:59 Intake Total 2080 1280 1100 480 Output Total 1900 600 900 Balance 180 680 200 480 Weight 92.8 kg - Lab Result Diagrams: 08/19/22 09:13 08/20/22 05:30 Micro Results-Entire Visit: Microbiology 08/19/22 12:10 Blood Culture - Preliminary Blood NO GROWTH TO DATE 08/19/22 12:15 Blood Culture - Preliminary Blood NO GROWTH TO DATE - Procedures and Test Procedures and Tests throughout Hospitalization: Therapy Orders & Screens 08/19/22 09:26 Respiratory Therapy Assessment DAILY Comment: 08/19/22 11:55 Oxygen Nasal Cannula 2 lpm Comment: 08/20/22 07:00 Respiratory MDI UD Comment: TRELEGY DAILY Diagnosis: exacerbation COPD - Discharge Disposition: Hospice @ [facility] Condition: Stable Prescriptions: Continue Aspirin EC 81 mg [Ecotrin 81 mg] 81 mg PO DAILY Dorzolamide HCl/Pf [Dorzolamide 2% Eye Drop] 1 drop OP BID Brimonidine Tartrate [Alphagan P 0.15%] 1 drop OP TID Alendronate Sodium 70 mg [Fosamax 70 MG] 70 mg PO WEEKLY Albuterol Sulfate 2.5 mg IH Q6H Prednisone 20 mg [Deltasone 20 mg] 20 mg PO DAILY Metoprolol Tartrate 25 mg [Lopressor 25MG Tab] 25 mg PO BID PARoxetine HCL [Paxil] 10 mg PO DAILY Trazodone HCl 50 mg [Desyrel 50 mg] 50 mg PO HS Tamsulosin HCl 0.4 mg [Flomax 0.4 MG] 0.4 mg PO DAILY Cetirizine HCl [Zyrtec] 10 mg PO QHS Clopidogrel Bisulfate [PLAVIX Tablet] 75 mg PO DAILY Lisinopril 10 mg [Zestril 10 MG] 10 mg PO DAILY Furosemide 20 mg [Lasix 20 mg] 20 mg PO DAILY Ropinirole HCl 1 mg PO QHS Multivitamin 1 each PO DAILY Atorvastatin Calcium 40 mg PO QHS Calcium Carbonate/Vitamin D3 [Oysco 500-Vit D3 200 Tablet] 1 each PO BID Fluticasone/Umeclidin/Vilanter [Trelegy Ellipta 200-62.5-25] 1 puff IH DAILY Additional Instructions: CALL PRIMARY [facility]ARE DR FOR FOLLOW UP APPOINTMENT SOMETIME WITHIN THE NEXT WEEK . [facility] is set up at patient's home with COPD equipment etc,anticipating this discharge home today. Follow up with: JAMES STEVENS MD [Primary Care Provider] -
[2022-08-22 15:41] VITALS: PULSE 88; O2SAT 92
== END 2022-08-22 15:30 | disposition hospice, home (50) ==
LOC: ED 08:41 → MED SURG 12:20
PROVIDERS: ADMIT General Practice; ATTEND General Practice
DX: J44.1 Chronic obstructive pulmonary disease with (acute) exacerbation (principal); I25.10 Atherosclerotic heart disease of native coronary artery without angina pectoris; E78.5 Hyperlipidemia, unspecified; Z79.01 Long term (current) use of anticoagulants; Z79.899 Other long term (current) drug therapy; Z20.828 Contact with and (suspected) exposure to other viral communicable diseases; Z99.81 Dependence on supplemental oxygen
CPT/HCPCS: 0241U; 36000; 36415; 36600; 71045; 71250; 80053; 81001; 82375; 82803; 83605; 83735; 83880; 84484; 85025; 85379; 85610; 85730; 87040; 93005; 93041; 94640; 94760; 96374; 99285; 99291; G0378; J0456; J0696; J1650; J2930; J7609; A9270-GY